=== PATIENT | male | born 1980 ===

== ENCOUNTER 2022-05-04 04:31 | Inpatient (IN) | payer SELFPAY ==
[2022-05-04 07:35] LABS: Basophils # (Auto) 0.1 K/mm3 (0.0-0.1); Basophils % (Auto) 2.2 % (0.0-1.8); Eosinophils # (Auto) 0.2 K/mm3 (0.0-0.4); Eosinophils % (Auto) 3.7 % (0.0-4.3); Hematocrit 34.4 % (35.5-45.6); Hemoglobin 11.1 gm/dl (11.8-15.2); Lymphocytes # (Auto) 1.8 K/mm3 (1.2-5.4); Lymphocytes % (Auto) 28.6 % (13.4-35.0); Mean Corpuscular HGB Conc 32 % (32-34); Mean Corpuscular Volume 90 fl (84-94); Monocytes # (Auto) 0.4 K/mm3 (0.0-0.8); Monocytes % (Auto) 5.6 % (0.0-7.3); Platelet Count 269 K/mm3 (140-440); Red Blood Count 3.82 M/mm3 (3.65-5.03); Red Cell Distribution Width 17.2 % (13.2-15.2)
[2022-05-04 07:52] LABS: Albumin 4.5 g/dL (3.9-5); Calcium 9.3 mg/dL (8.4-10.2)
[2022-05-04] MEDS ORDERED: SODIUM CHLORIDE 0.9% 1000 ML 1,000 ML IV ONE (08:39)
--- NOTE | 2022-05-04 08:54 | Emergency Department Report ---
ED General Adult HPI - General Chief complaint: High BP Stated complaint: HIGH BP/BLOOD SUGAR Source: patient Mode of arrival: Ambulatory Limitations: No Limitations - History of Present Illness Initial comments: 41-year-old male presents with a history of hypertension and diabetes presents to the ED complaining of dizziness. Patient states that he works out in the sun for 12 hours a day. Patient states that he started some new hypertension medication x2 weeks ago unknown name of medication. Patient states since starting the medication he has become dizzy. Patient denies any chest pain or abdominal pain at present time. Patient is alert and oriented x3. No acute distress noted. No ill appearance noted. lang interpreter used via language line Severity scale (0 -10): 8 - Related Data Home Medications Medication Instructions Recorded Confirmed Last Taken Lisinopril [Zestril TAB] 2.5 mg PO DAILY 05/06/22 05/06/22 Unknown Simvastatin 20 mg PO QHS 05/06/22 05/06/22 Unknown Previous Rx's Medication Instructions Recorded Last Taken Type Famotidine [Pepcid] 10 mg PO BID #30 tablet 05/06/22 Unknown Rx ISOSORBIDE MONOnitrate [Imdur ER] 30 mg PO DAILY #30 tab.er.24h 05/06/22 Unknown Rx Vancomycin HCl 125 mg PO QID #40 cap 05/06/22 Unknown Rx hydrALAZINE [Apresoline TAB] 50 mg PO Q8HR #120 tablet 05/06/22 Unknown Rx metroNIDAZOLE [Flagyl TAB] 500 mg PO Q8HR #30 tablet 05/06/22 Unknown Rx oxyCODONE /ACETAMINOPHEN [Percocet 1 tab PO Q6H PRN #10 tablet 05/06/22 Unknown Rx 5/325 mg] Allergies Allergy/AdvReac Type Severity Reaction Status Date / Time No Known Allergies Allergy Unverified 05/04/22 04:56 ED Review of Systems ROS: Stated complaint: HIGH BP/BLOOD SUGAR Other details as noted in HPI Constitutional: denies: chills, fever Eyes: denies: eye pain, eye discharge, vision change ENT: denies: ear pain, throat pain Respiratory: denies: cough, shortness of breath, wheezing Cardiovascular: denies: chest pain, palpitations Endocrine: no symptoms reported Gastrointestinal: denies: abdominal pain, nausea, diarrhea Genitourinary: denies: urgency, dysuria Musculoskeletal: denies: back pain, joint swelling, arthralgia Skin: denies: rash, lesions Neurological: denies: headache, weakness, paresthesias Psychiatric: denies: anxiety, depression Hematological/Lymphatic: denies: easy bleeding, easy bruising ED Past Medical Hx - Medications Home Medications: Home Medications Medication Instructions Recorded Confirmed Last Taken Type Famotidine [Pepcid] 10 mg PO BID #30 tablet 05/06/22 Unknown Rx ISOSORBIDE MONOnitrate [Imdur ER] 30 mg PO DAILY #30 tab.er.24h 05/06/22 Unknown Rx Lisinopril [Zestril TAB] 2.5 mg PO DAILY 05/06/22 05/06/22 Unknown History Simvastatin 20 mg PO QHS 05/06/22 05/06/22 Unknown History Vancomycin HCl 125 mg PO QID #40 cap 05/06/22 Unknown Rx hydrALAZINE [Apresoline TAB] 50 mg PO Q8HR #120 tablet 05/06/22 Unknown Rx metroNIDAZOLE [Flagyl TAB] 500 mg PO Q8HR #30 tablet 05/06/22 Unknown Rx oxyCODONE /ACETAMINOPHEN [Percocet 1 tab PO Q6H PRN #10 tablet 05/06/22 Unknown Rx 5/325 mg] ED Physical Exam - General Limitations: No Limitations General appearance: alert, in no apparent distress - Head Head exam: Present: atraumatic, normocephalic - Eye Eye exam: Present: normal appearance - ENT ENT exam: Present: mucous membranes moist - Neck Neck exam: Present: normal inspection - Respiratory Respiratory exam: Present: normal lung sounds bilaterally. Absent: respiratory distress - Cardiovascular Cardiovascular Exam: Present: regular rate, normal rhythm. Absent: systolic murmur, diastolic murmur, rubs, gallop - GI/Abdominal GI/Abdominal exam: Present: soft, normal bowel sounds - Rectal Rectal exam: Present: deferred - Extremities Exam Extremities exam: Present: normal inspection - Back Exam Back exam: Present: normal inspection - Neurological Exam Neurological exam: Present: alert, oriented X3 - Psychiatric Psychiatric exam: Present: normal affect, normal mood - Skin Skin exam: Present: warm, dry, intact, normal color. Absent: rash ED Course Vital Signs 05/04/22 05/04/22 05/04/22 04:44 07:32 20:21 Temperature 98.8 F Pulse Rate 67 70 67 Respiratory 20 18 14 Rate Blood Pressure 169/114 142/102 171/112 [Right] O2 Sat by Pulse 100 97 97 Oximetry ED Medical Decision Making - Lab Data Result diagrams: 05/07/22 05:12 05/07/22 05:12 - Medical Decision Making 41-year-old male presents with a history of hypertension and diabetes presents to the ED complaining of dizziness. Patient states that he works out in the sun for 12 hours a day. Patient states that he started some new hypertension medication x2 weeks ago unknown name of medication. Patient states since starting the medication he has become dizzy. Patient denies any chest pain or abdominal pain at present time. Patient is alert and oriented x3. No acute distress noted. No ill appearance noted. lang interpreter used via language line. Physical examination is unremarkable. BUN and creatinine elevated. Consulted nephrology and Dr. Lyons for admission. Laboratory Results - last 72 hr 05/04/22 05/04/22 05/04/22 12:23 12:23 12:23 WBC 6.5 RBC 3.99 Hgb 11.6 L Hct 35.7 MCV 89 MCH 29 MCHC 33 RDW 17.2 H Plt Count 269 Phosphorus 3.30 Total Creatine Kinase 2651 H PTH Intact 44.06 Critical care attestation.: If time is entered above; I have spent that time in minutes in the direct care of this critically ill patient, excluding procedure time. ED Disposition Clinical Impression: Acute renal failure Qualifiers: Acute renal failure type: unspecified Qualified Code(s): N17.9 - Acute kidney failure, unspecified Disposition: ADMITTED INPATIENT Is pt being admited?: Yes Does the pt Need Aspirin: No Condition: Stable
[2022-05-04 09:09] LABS: WBC,Urine < 1.0 /HPF (0.0-6.0)
[2022-05-04 09:12] LABS: Color,Urine Straw (Yellow); RBC,Urine < 1.0 /HPF (0.0-6.0)
--- NOTE | 2022-05-04 11:21 | Consultation ---
History of Present Illness - Reason for Consult Consult date: 05/04/22 - History of Present Illness This is a 41 y/o M with PMH of DM2 and HTN who presented to [facility] ED with c/o dizziness. 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 Pt was apparently working outside in the sun for about 12 hrs. Pt reported starting a new BP medication about 2 wks ago, but unsure of name of medication. Pt reported his dizziness started after taking new medication. Pt was found to have abnormal renal function and renal consult was requested. Past History Past Medical History: diabetes, hypertension Medications and Allergies Allergies Allergy/AdvReac Type Severity Reaction Status Date / Time No Known Allergies Allergy Unverified 05/04/22 04:56 Review of Systems Constitutional: fatigue, weakness Ears, nose, mouth and throat: other (dizziness) Cardiovascular: lightheadedness Neurological: other (dizziness) Exam - Vital Signs Vital signs: Vital Signs Temp Pulse Resp BP Pulse Ox 98.8 F 67 20 169/114 100 05/04/22 04:44 05/04/22 04:44 05/04/22 04:44 05/04/22 04:44 05/04/22 04:44 - General Appearance General appearance: other (no acute distress) EENT: ATNC Neck: Present: neck supple Respiratory: Clear to Ascultation Heart: regular, S1S2 Gastrointestinal: Present: normoactive bowel sounds. Absent: tenderness Integumentary: warm and dry Neurologic: other (pt speaks primarily Scottish) Musculoskeletal: Present: other (trace edema to BLE) Results - Lab Results 05/04/22 07:14 05/04/22 07:14 Most recent lab results Calcium 9.3 mg/dL (8.4-10.2) 05/04/22 07:14 Assessment and Plan Dizziness Acute Kidney Injury possibly 2/2 prerenal etiology, ? BP medication, ? hx of CKD, r/o obstruction HTN Plan: - Renal function reviewed, SCr level was 3.2 today - Unknown SCr baseline - Pt with hx of HTN, possible underlying CKD 2/2 HTN - S/p 0.9% NS Bolus in ED - Unsure of name of BP medication(s) pt was recently started on outpatient. It's a possibility BP medication(s) could be a contributing factor toward NANCY (? ACEI, ARBs, or diuretic) - Obtain Renal US - UA showed 3+ protein, obtain urine protein to quantity proteinuria, check urine lytes, eosinophils - Check CK level - Check PTH, phosphorus, and magnesium - Strict intake and output - Vega Catheter: No - Renal plan reviewed by Dr Rodriguez
[2022-05-04 12:53] LABS: Hematocrit 35.7 % (35.5-45.6); Hemoglobin 11.6 gm/dl (11.8-15.2); Mean Corpuscular HGB Conc 33 % (32-34); Mean Corpuscular Volume 89 fl (84-94); Platelet Count 269 K/mm3 (140-440); Red Blood Count 3.99 M/mm3 (3.65-5.03); Red Cell Distribution Width 17.2 % (13.2-15.2)
--- NOTE | 2022-05-04 14:15 | Ultrasound Report ---
ULTRASOUND RENAL INDICATION / CLINICAL INFORMATION: NANCY. COMPARISON: None available. FINDINGS: RIGHT KIDNEY: Length = 10.7 cm. - Echogenicity: Moderately echogenic. - Parenchymal Thickness: Mild thinning. - Hydronephrosis: None. - Cyst / Mass: None. - Stones: None seen. LEFT KIDNEY: Length = 10.9 cm. - Echogenicity: Moderately echogenic. - Parenchymal Thickness: Mild thinning. - Hydronephrosis: None. - Cyst / Mass: None. - Stones: None seen. URINARY BLADDER: The urinary bladder is partially collapsed. The wall appears mildly thickened. This is nonspecific. FREE FLUID: None. ADDITIONAL FINDINGS: There is a 1.7 cm hyperechoic lesion in the right lobe of the liver. IMPRESSION: 1. There is mild parenchymal thinning. The kidneys are echogenic suggesting medical renal disease. Th ere is no hydronephrosis. 2. There is a 1.7 cm hyperechoic lesion in the liver. This is indeterminate. This may represent a hem angioma. Further evaluation with CT imaging is recommended. Signer Name: Juan Silva MD Signed: 05/04/2022 2:10 PM Workstation Name: [id number]
[2022-05-04] MEDS ORDERED: ONDANSETRON 4 MG/2 ML INJ IV PRN (17:20)
[2022-05-04] MEDS ORDERED: MORPHINE 2 MG/1 ML INJ IV PRN (17:25)
[2022-05-04] MEDS ORDERED: D5W/0.9% NACL 1,000 ML IV SCH (18:00)
[2022-05-04] MEDS ORDERED: FAMOTIDINE 20 MG TAB PO SCH (22:00)
[2022-05-04] MEDS: HEPARIN 5,000 UNIT/1 ML VIAL SUB-Q SCH (23:09)
[2022-05-04] MEDS: ACETAMINOPHEN 325 MG TAB PO PRN (23:27)
[2022-05-04] MEDS ORDERED: hydrALAZINE 20 MG/1 ML INJ IV PRN (23:37)
--- NOTE | 2022-05-05 07:04 | History and Physical Report ---
History of Present Illness Date of examination: 05/04/22 Date of admission: 05/04/22 17:20 Chief complaint: Generalized weakness and dizziness for 1 week History of present illness: 41-year-old Faroese-speaking male with history of hypertension and diabetes comes to the emergency room for dizziness. Patient was out in the sun for 12 hours a day. Patient was started on antihypertensive medication 2 weeks ago. Patient does not remember the name. Patient feels lightheaded and weak. In the emergency room evaluation revealed a high creatinine of 28/3.2. No known history of any kidney disease. No nausea or vomiting. No fever or chills. Patient wants an work excuse to avoid sun. Patient feels that all his problems are because of exposure to sun. Past History Past Medical History: diabetes, hypertension Past Surgical History: No surgical history Social history: lives with family, full code, other (Alcohol use socially). denies: smoking Family history: no significant family history Medications and Allergies Allergies Allergy/AdvReac Type Severity Reaction Status Date / Time No Known Allergies Allergy Unverified 05/04/22 04:56 Active Meds: Active Medications Acetaminophen (Acetaminophen 325 Mg Tab) 650 mg PO Q4H PRN PRN Reason: Pain MILD(1-3)/Fever >100.5/FRANK Last Admin: 05/04/22 23:27 Dose: 650 mg Famotidine (Famotidine 20 Mg Tab) 20 mg PO BID HANNY Last Admin: 05/04/22 23:10 Dose: 20 mg Heparin Sodium (Porcine) (Heparin 5,000 Unit/1 Ml Vial) 5,000 unit SUB-Q Q12HR HANNY Last Admin: 05/04/22 23:09 Dose: 5,000 unit Hydralazine HCl (Hydralazine 20 Mg/1 Ml Inj) 10 mg IV Q6H PRN PRN Reason: Hypertension Last Admin: 05/05/22 00:13 Dose: 10 mg Dextrose/Sodium Chloride (D5ns) 1,000 mls @ 125 mls/hr IV DIRECT HANNY Last Admin: 05/05/22 06:05 Dose: 125 mls/hr Morphine Sulfate (Morphine 2 Mg/1 Ml Inj) 2 mg IV Q4H PRN PRN Reason: Pain, Moderate (4-6) Ondansetron HCl (Ondansetron 4 Mg/2 Ml Inj) 4 mg IV Q8H PRN PRN Reason: Nausea And Vomiting Oxycodone/Acetaminophen (Oxycodone /Acetaminophen 5-325mg Tab) 1 tab PO Q6H PRN PRN Reason: Pain, Moderate (4-6) Sodium Chloride (Sodium Chloride 0.9% 10 Ml Flush Syringe) 10 ml IV BID HANNY Last Admin: 05/04/22 22:00 Dose: 10 ml Sodium Chloride (Sodium Chloride 0.9% 10 Ml Flush Syringe) 10 ml IV PRN PRN PRN Reason: LINE FLUSH Review of Systems All systems: negative Neurological: other (Dizziness and generalized weakness) Exam - Constitutional Vitals: Temp Pulse Resp BP Pulse Ox 98.0 F 66 14 140/109 93 05/05/22 05:10 05/05/22 05:10 05/04/22 20:21 05/05/22 05:10 05/05/22 05:10 General appearance: Present: no acute distress, well-nourished - EENT Eyes: Present: PERRL ENT: hearing intact, clear oral mucosa, other (Mucous membranes are dry) - Neck Neck: Present: supple, normal ROM - Respiratory Respiratory effort: normal Respiratory: bilateral: CTA - Cardiovascular Heart rate: 98 Rhythm: regular Heart Sounds: Present: S1 & S2. Absent: rub, click - Extremities Extremities: pulses symmetrical, No edema Peripheral Pulses: within normal limits - Abdominal General gastrointestinal: Present: soft, non-tender, non-distended, normal bowel sounds Male genitourinary: Present: normal - Integumentary Integumentary: Present: clear, warm, dry - Musculoskeletal Musculoskeletal: gait normal, strength equal bilaterally - Psychiatric Psychiatric: appropriate mood/affect, intact judgment & insight - Neurologic Neurologic: CNII-XII intact, moves all extremities Results - Labs CBC & Chem 7: 05/04/22 12:23 05/04/22 07:14 Labs: Laboratory Last Values WBC 6.5 K/mm3 (4.5-11.0) 05/04/22 12:23 RBC 3.99 M/mm3 (3.65-5.03) 05/04/22 12:23 Hgb 11.6 gm/dl (11.8-15.2) L 05/04/22 12:23 Hct 35.7 % (35.5-45.6) 05/04/22 12:23 MCV 89 fl (84-94) 05/04/22 12:23 MCH 29 pg (28-32) 05/04/22 12:23 MCHC 33 % (32-34) 05/04/22 12:23 RDW 17.2 % (13.2-15.2) H 05/04/22 12:23 Plt Count 269 K/mm3 (140-440) 05/04/22 12:23 Lymph % (Auto) 28.6 % (13.4-35.0) 05/04/22 07:14 Dickenson % (Auto) 5.6 % (0.0-7.3) 05/04/22 07:14 Eos % (Auto) 3.7 % (0.0-4.3) 05/04/22 07:14 Baso % (Auto) 2.2 % (0.0-1.8) H 05/04/22 07:14 Lymph # (Auto) 1.8 K/mm3 (1.2-5.4) 05/04/22 07:14 Dickenson # (Auto) 0.4 K/mm3 (0.0-0.8) 05/04/22 07:14 Eos # (Auto) 0.2 K/mm3 (0.0-0.4) 05/04/22 07:14 Baso # (Auto) 0.1 K/mm3 (0.0-0.1) 05/04/22 07:14 Seg Neutrophils % 59.9 % (40.0-70.0) 05/04/22 07:14 Seg Neutrophils # 3.9 K/mm3 (1.8-7.7) 05/04/22 07:14 Sodium 141 mmol/L (137-145) 05/04/22 07:14 Potassium 4.6 mmol/L (3.6-5.0) 05/04/22 07:14 Chloride 104.2 mmol/L (98-107) 05/04/22 07:14 Carbon Dioxide 22 mmol/L (22-30) 05/04/22 07:14 Anion Gap 19 mmol/L 05/04/22 07:14 BUN 28 mg/dL (9-20) H 05/04/22 07:14 Creatinine 3.2 mg/dL (0.8-1.3) H 05/04/22 07:14 Estimated GFR 21 ml/min 05/04/22 07:14 BUN/Creatinine Ratio 9 % 05/04/22 07:14 Glucose 128 mg/dL (75-100) H 05/04/22 07:14 POC Glucose 94 mg/dL (70-105) 05/04/22 22:44 Calcium 9.3 mg/dL (8.4-10.2) 05/04/22 07:14 Phosphorus 3.30 mg/dL (2.5-4.5) 05/04/22 12:23 Total Bilirubin 0.40 mg/dL (0.1-1.2) 05/04/22 07:14 AST 55 units/L (5-40) H 05/04/22 07:14 ALT 25 units/L (7-56) 05/04/22 07:14 Alkaline Phosphatase 55 units/L (35-129) 05/04/22 07:14 Total Creatine Kinase 2651 units/L (55-170) H 05/04/22 12:23 Total Protein 7.3 g/dL (6.3-8.2) 05/04/22 07:14 Albumin 4.5 g/dL (3.9-5) 05/04/22 07:14 Albumin/Globulin Ratio 1.6 % 05/04/22 07:14 PTH Intact 44.06 pg/mL (15-65) 05/04/22 12:23 Urine Color Straw (Yellow) 05/04/22 08:18 Urine Turbidity Clear (Clear) 05/04/22 08:18 Specific Hensley (Man) 1.015 (1.003-1.030) 05/04/22 08:18 Ur Protein (Man) 3+ mg/dL (Negative) 05/04/22 08:18 Ur Ketones (Man) Negative (Negative) 05/04/22 08:18 Ur Nitrite (Man) Negative (Negative) 05/04/22 08:18 Ur Reducing Substances Not Reportable 05/04/22 08:18 Urine Bilirubin (Man) Negative (Negative) 05/04/22 08:18 Urine Ictotest Not Reportable 05/04/22 08:18 Leukocyte Esterase (Man) Negative (Negative) 05/04/22 08:18 Urine WBC (Auto) < 1.0 /HPF (0.0-6.0) 05/04/22 08:18 Urine RBC (Auto) < 1.0 /HPF (0.0-6.0) 05/04/22 08:18 U Epithel Cells (Auto) < 1.0 /HPF (0-13.0) 05/04/22 08:18 Urine RBC (Manual) Negative (Negative) 05/04/22 08:18 Short CBC 05/04/22 05/04/22 Range/Units 07:14 12:23 WBC 6.5 6.5 (4.5-11.0) K/mm3 Hgb 11.1 L 11.6 L (11.8-15.2) gm/dl Hct 34.4 L 35.7 (35.5-45.6) % Plt Count 269 269 (140-440) K/mm3 BMP 05/04/22 07:14 Sodium 141 Potassium 4.6 Chloride 104.2 Carbon Dioxide 22 BUN 28 H Creatinine 3.2 H Glucose 128 H Calcium 9.3 Cardiac Enzymes 05/04/22 Range/Units 12:23 Total Creatine Kinase 2651 H (55-170) units/L Liver Function 05/04/22 Range/Units 07:14 Total Bilirubin 0.40 (0.1-1.2) mg/dL AST 55 H (5-40) units/L ALT 25 (7-56) units/L Alkaline Phosphatase 55 (35-129) units/L Albumin 4.5 (3.9-5) g/dL Urine 05/04/22 Range/Units 08:18 Urine Color Straw (Yellow) Vega/IV: Voiding Method Urinal Assessment and Plan Advance Directives: Yes (Full code) VTE prophylaxis?: Chemical Plan of care discussed with patient/family: Yes - Patient Problems (1) NANCY (acute kidney injury) Current Visit: Yes Status: Acute Plan to address problem: NANCY secondary to volume depletion Nephrology consult requested Heat exposure IV fluids for now Possible ATN/vasomotor nephropathy (2) Rhabdomyolysis Current Visit: Yes Status: Acute Qualifiers: Rhabdomyolysis type: non-traumatic Qualified Code(s): M62.82 - Rhabdomyolysis Plan to address problem: IV fluids for now CKs 2651. Repeat CKs. (3) Hypertension Current Visit: Yes Status: Chronic Qualifiers: Hypertension type: primary hypertension Qualified Code(s): I10 - Essential (primary) hypertension Plan to address problem: Continue antihypertensives and adjust medications (4) T2DM (type 2 diabetes mellitus) Current Visit: Yes Status: Chronic Qualifiers: Diabetes mellitus long-term insulin use: unspecified adjunct faculty for medical terminology insulin use status Plan to address problem: Patient is not clear about his diabetes history Patient not on any medications Check hemoglobin A1c Accu-Cheks and coverage for now Prescribed metformin and SGLT2 inhibitors if necessary (5) DVT prophylaxis Current Visit: Yes Status: Acute Plan to address problem: On heparin and GI prophylaxis (6) Advance care planning Current Visit: Yes Status: Acute Plan to address problem: Disease education conducted, care plan discussed, diagnosis and prognosis discussed. Patient is full code. Patient acknowledges understanding with care plan. +30 minutes.
[2022-05-05] MEDS ORDERED: VALSARTAN 160MG TAB PO SCH (07:30)
--- NOTE | 2022-05-05 08:47 | Progress Note ---
Assessment and Plan Assessment and plan: 41-year-old Faroese-speaking male with history of hypertension and diabetes comes to the emergency room for dizziness. Patient was out in the sun for 12 hours a day. Patient was started on antihypertensive medication 2 weeks ago. Patient does not remember the name. Patient feels lightheaded and weak. In the emergency room evaluation revealed a high creatinine of 28/3.2. No known history of any kidney disease. No nausea or vomiting. No fever or chills. Patient wants an work excuse to avoid sun. Patient feels that all his problems are because of exposure to sun. Past History Past Medical History: diabetes, hypertension Past Surgical History: No surgical history Social history: lives with family, full code, other (Alcohol use socially). denies: smoking Family history: no significant family history 05/05: Patient still with abdominal discomfort we will obtain a CT abdomen pelvis noncontrast. Renal function reviewed this morning creatinine is down to 3.0 we will change fluids to normal saline at 125 cc an hour. We will hold valsartan at this time. Start patient on hydralazine as patient still has hypertensive urgency. May need to add Norvasc or isosorbide for better control of blood pressure if no improvement will hydralazine. Awaiting powertrain design engineer evaluation. We will also obtain orthostatic pressures considering dizziness reported earlier. (1) NANCY (acute kidney injury) Current Visit: Yes Status: Acute Plan to address problem: NANCY secondary to volume depletion Nephrology consult requested Heat exposure IV fluids for now Possible ATN/vasomotor nephropathy (2) Rhabdomyolysis Current Visit: Yes Status: Acute Qualifiers: Rhabdomyolysis type: non-traumatic Qualified Code(s): M62.82 - Rhabdomyolysis Plan to address problem: IV fluids for now CKs 2651. Repeat CKs. (3) Hypertension Current Visit: Yes Status: Chronic Qualifiers: Hypertension type: primary hypertension Qualified Code(s): I10 - Essential (primary) hypertension Plan to address problem: Continue antihypertensives and adjust medications (4) T2DM (type 2 diabetes mellitus) Current Visit: Yes Status: Chronic Qualifiers: Diabetes mellitus detention insulin use: unspecified detention insulin use status Plan to address problem: Patient is not clear about his diabetes history Patient not on any medications Check hemoglobin A1c Accu-Cheks and coverage for now Prescribed metformin and SGLT2 inhibitors if necessary (5) DVT prophylaxis Current Visit: Yes Status: Acute Plan to address problem: On heparin and GI prophylaxis (6) Advance care planning Current Visit: Yes Status: Acute Plan to address problem: Disease education conducted, care plan discussed, diagnosis and prognosis discussed. Patient is full code. Patient acknowledges understanding with care plan. +30 minutes. Inpatient Justification * Risk of adverse events associated with worsening signs & symptoms of principle problem and up to . * Risk of adverse events related to severe illness up to and including * Treatment requiring a hospital setting: Acute kidney injury, hypertensive urgency * Current post hospital plan of care: Discharge home History Interval history: Patient seen and examined still complains of left lower quadrant abdominal discomfort 4/10 in intensity no associated nausea vomiting tolerating diet Hospitalist Physical - Physical exam Narrative exam: VITAL SIGNS: Reviewed. GENERAL: The patient appears normally developed, Vital signs as documented. HEAD: No signs of head trauma. EYES: Pupils are equal. Extraocular motions intact. EARS: Hearing grossly intact. MOUTH: Oropharynx is normal. NECK: No adenopathy, no JVD. CHEST: Chest with clear breath sounds bilaterally. No wheezes, rales, or rhonchi. CARDIAC: Regular rate and rhythm. S1 and S2, without murmurs, gallops, or rubs. VASCULAR: No Edema. Peripheral pulses normal and equal in all extremities. ABDOMEN: Soft, enlarged abdominal girth, tender left lower quadrant with no rebound and non distended. No guarding, and no masses palpated. Bowel Sounds normal. MUSCULOSKELETAL: Good range of motion of all major joints. Extremities without clubbing, cyanosis or edema. NEUROLOGIC EXAM: Alert and oriented x 3 No focal sensory or strength deficits. Speech normal. Follows commands. PSYCHIATRIC: Mood normal. SKIN: detail exam as documented in skin assessment - Constitutional Vitals: Temp Pulse Resp BP Pulse Ox 98.0 F 66 14 140/109 93 05/05/22 05:10 05/05/22 05:10 05/04/22 20:21 05/05/22 05:10 05/05/22 05:10 General appearance: Present: no acute distress, well-nourished Results - Labs CBC & Chem 7: 05/05/22 09:50 05/05/22 09:50 Labs: Laboratory Last Values WBC 6.5 K/mm3 (4.5-11.0) 05/04/22 12:23 RBC 3.99 M/mm3 (3.65-5.03) 05/04/22 12:23 Hgb 11.6 gm/dl (11.8-15.2) L 05/04/22 12:23 Hct 35.7 % (35.5-45.6) 05/04/22 12:23 MCV 89 fl (84-94) 05/04/22 12:23 MCH 29 pg (28-32) 05/04/22 12:23 MCHC 33 % (32-34) 05/04/22 12:23 RDW 17.2 % (13.2-15.2) H 05/04/22 12:23 Plt Count 269 K/mm3 (140-440) 05/04/22 12:23 Lymph % (Auto) 28.6 % (13.4-35.0) 05/04/22 07:14 [place] % (Auto) 5.6 % (0.0-7.3) 05/04/22 07:14 Eos % (Auto) 3.7 % (0.0-4.3) 05/04/22 07:14 Baso % (Auto) 2.2 % (0.0-1.8) H 05/04/22 07:14 Lymph # (Auto) 1.8 K/mm3 (1.2-5.4) 05/04/22 07:14 [place] # (Auto) 0.4 K/mm3 (0.0-0.8) 05/04/22 07:14 Eos # (Auto) 0.2 K/mm3 (0.0-0.4) 05/04/22 07:14 Baso # (Auto) 0.1 K/mm3 (0.0-0.1) 05/04/22 07:14 Seg Neutrophils % 59.9 % (40.0-70.0) 05/04/22 07:14 Seg Neutrophils # 3.9 K/mm3 (1.8-7.7) 05/04/22 07:14 Sodium 141 mmol/L (137-145) 05/04/22 07:14 Potassium 4.6 mmol/L (3.6-5.0) 05/04/22 07:14 Chloride 104.2 mmol/L (98-107) 05/04/22 07:14 Carbon Dioxide 22 mmol/L (22-30) 05/04/22 07:14 Anion Gap 19 mmol/L 05/04/22 07:14 BUN 28 mg/dL (9-20) H 05/04/22 07:14 Creatinine 3.2 mg/dL (0.8-1.3) H 05/04/22 07:14 Estimated GFR 21 ml/min 05/04/22 07:14 BUN/Creatinine Ratio 9 % 05/04/22 07:14 Glucose 128 mg/dL (75-100) H 05/04/22 07:14 POC Glucose 94 mg/dL (70-105) 05/04/22 22:44 Calcium 9.3 mg/dL (8.4-10.2) 05/04/22 07:14 Phosphorus 3.30 mg/dL (2.5-4.5) 05/04/22 12:23 Total Bilirubin 0.40 mg/dL (0.1-1.2) 05/04/22 07:14 AST 55 units/L (5-40) H 05/04/22 07:14 ALT 25 units/L (7-56) 05/04/22 07:14 Alkaline Phosphatase 55 units/L (35-129) 05/04/22 07:14 Total Creatine Kinase 2651 units/L (55-170) H 05/04/22 12:23 Total Protein 7.3 g/dL (6.3-8.2) 05/04/22 07:14 Albumin 4.5 g/dL (3.9-5) 05/04/22 07:14 Albumin/Globulin Ratio 1.6 % 05/04/22 07:14 PTH Intact 44.06 pg/mL (15-65) 05/04/22 12:23 Urine Color Straw (Yellow) 05/04/22 08:18 Urine Turbidity Clear (Clear) 05/04/22 08:18 Specific [place] (Man) 1.015 (1.003-1.030) 05/04/22 08:18 Ur Protein (Man) 3+ mg/dL (Negative) 05/04/22 08:18 Ur Ketones (Man) Negative (Negative) 05/04/22 08:18 Ur Nitrite (Man) Negative (Negative) 05/04/22 08:18 Ur Reducing Substances Not Reportable 05/04/22 08:18 Urine Bilirubin (Man) Negative (Negative) 05/04/22 08:18 Urine Ictotest Not Reportable 05/04/22 08:18 Leukocyte Esterase (Man) Negative (Negative) 05/04/22 08:18 Urine WBC (Auto) < 1.0 /HPF (0.0-6.0) 05/04/22 08:18 Urine RBC (Auto) < 1.0 /HPF (0.0-6.0) 05/04/22 08:18 U Epithel Cells (Auto) < 1.0 /HPF (0-13.0) 05/04/22 08:18 Urine RBC (Manual) Negative (Negative) 05/04/22 08:18 Vega/IV: Voiding Method Urinal Active Medications - Current Medications Current Medications: Generic Name Dose Route Start Last Admin Trade Name Freq PRN Reason Stop Dose Admin Acetaminophen 650 mg 05/04/22 17:20 05/04/22 23:27 Acetaminophen 325 Mg Tab PO 650 mg Q4H PRN Administration Pain MILD(1-3)/Fever >100.5/FRANK Famotidine 20 mg 05/04/22 22:00 05/04/22 23:10 Famotidine 20 Mg Tab PO 20 mg BID HANNY Administration Heparin Sodium (Porcine) 5,000 unit 05/04/22 22:00 05/04/22 23:09 Heparin 5,000 Unit/1 Ml Vial SUB-Q 5,000 unit Q12HR HANNY Administration Hydralazine HCl 10 mg 05/04/22 23:37 05/05/22 00:13 Hydralazine 20 Mg/1 Ml Inj IV 10 mg Q6H PRN Administration Hypertension Dextrose/Sodium Chloride 1,000 mls @ 125 mls/hr 05/04/22 18:00 05/05/22 06:05 D5ns IV 125 mls/hr DIRECT HANNY Administration Insulin Human Lispro 0 unit 05/05/22 07:30 Insulin Lispro 100 Unit/Ml SUB-Q ACHS HANNY Protocol Morphine Sulfate 2 mg 05/04/22 17:25 Morphine 2 Mg/1 Ml Inj IV Q4H PRN Pain, Moderate (4-6) Ondansetron HCl 4 mg 05/04/22 17:20 Ondansetron 4 Mg/2 Ml Inj IV Q8H PRN Nausea And Vomiting Oxycodone/Acetaminophen 1 tab 05/04/22 17:25 Oxycodone /Acetaminophen 5-325mg Tab PO Q6H PRN Pain, Moderate (4-6) Sodium Chloride 10 ml 05/04/22 22:00 05/04/22 22:00 Sodium Chloride 0.9% 10 Ml Flush Syringe IV 10 ml BID HANNY Administration Sodium Chloride 10 ml 05/04/22 17:20 Sodium Chloride 0.9% 10 Ml Flush Syringe IV PRN PRN LINE FLUSH Valsartan 160 mg 05/05/22 07:30 Valsartan 160mg Tab PO BID HANNY
[2022-05-05] MEDS: INSULIN LISPRO 100 UNIT/ML SUB-Q SCH ×4 (09:39→23:06)
[2022-05-05] MEDS: FAMOTIDINE 10 MG TAB PO SCH ×2 (09:59→23:20)
[2022-05-05] MEDS: HEPARIN 5,000 UNIT/1 ML VIAL SUB-Q SCH ×2 (09:59→21:47)
[2022-05-05] MEDS: oxyCODONE /ACETAMINOPHEN 5-325MG TAB PO PRN ×2 (10:00→21:45)
[2022-05-05 10:09] LABS: Basophils # (Auto) 0.1 K/mm3 (0.0-0.1); Eosinophils # (Auto) 0.2 K/mm3 (0.0-0.4); Eosinophils % (Auto) 2.6 % (0.0-4.3); Hematocrit 32.9 % (35.5-45.6); Hemoglobin 10.9 gm/dl (11.8-15.2); Lymphocytes # (Auto) 1.9 K/mm3 (1.2-5.4); Lymphocytes % (Auto) 30.4 % (13.4-35.0); Mean Corpuscular HGB Conc 33 % (32-34); Mean Corpuscular Volume 89 fl (84-94); Monocytes # (Auto) 0.4 K/mm3 (0.0-0.8); Monocytes % (Auto) 6.2 % (0.0-7.3); Platelet Count 243 K/mm3 (140-440); Red Cell Distribution Width 17.3 % (13.2-15.2)
[2022-05-05 10:32] LABS: Albumin 4.4 g/dL (3.9-5)
--- NOTE | 2022-05-05 12:54 | Cat Scan Report ---
CT ABDOMEN AND PELVIS WITHOUT CONTRAST HISTORY: llq pain. COMPARISON: None. TECHNIQUE: CT images of the abdomen and pelvis were obtained without administration of intravenous co ntrast. All CT scans at this location are performed using CT dose reduction for ALARA by means of au tomated exposure control. FINDINGS: Lungs/bones: Tiny 1 to 2 mm nodule in the right lower lung. Mild atelectasis in the lower lungs. Sma ll pericardial effusion Abdomen/pelvis: Within limits of a noncontrast exam the liver, spleen, adrenal glands, pancreas, gal lbladder appear normal. No hydronephrosis is seen. There is diffuse thickening of the ascending colon wall with surrounding inflammatory change. There is some questionable mild thickening of the splenic flexure. Urinary bladder is distended. Degenerative changes seen throughout spine IMPRESSION: 1. There is diffuse thickening of the ascending colon wall. Questionable mild thickening in the splen ic flexure of the colon as well.. Findings could represent a colitis with surrounding inflammatory ch lucita or bowel wall thickening. A follow-up is recommended with colonoscopy follow-up to exclude under lying mass or other abnormality. 2. Bladder is distended. 3. Tiny 1 to 2 mm pulmonary nodule in the right lower lung. Signer Name: Dank Mcgee MD Signed: 05/05/2022 12:50 PM Workstation Name: [email or web address]
--- NOTE | 2022-05-05 15:07 | Progress Note ---
Assessment and Plan Assessment: Dizziness Acute Kidney Injury possibly 2/2 prerenal etiology, ? BP medication, ? hx of CKD, r/o obstruction Hypertension Plan: - Renal function reviewed, SCr level was 3.0 today, yesterdays was 3.2 - Unknown baseline serum creatinine - Pt with hx of HTN, possible underlying CKD 2/2 Hypertension - S/P 0.9% NS Bolus in ED - Renal US- No hydronephrosis. Medical renal disease. - UA showed 3+ protein - Urine protein, urine lytes, eosinophils-pending - CK level-pending - PTH and phosphorus is normal - Strict intake and output - Vega Catheter: No - Continue to monitor renal function - Renal plan reviewed by Dr Rodriguez Subjective Date of service: 05/05/22 Principal diagnosis: ARF on CKD Interval history: Patient seen lying in bed Objective - Vital Signs Vital signs: Vital Signs - 12hr 05/05/22 05/05/22 05:10 11:08 Temperature 98.0 F 98.5 F Pulse Rate 66 65 Respiratory 18 Rate Blood Pressure 140/109 143/95 O2 Sat by Pulse 93 97 Oximetry - General Appearance General appearance: well-developed, appears stated age EENT: ATNC, PERRL Neck: no JVD, supple Respiratory: Present: Decreased Breath Sounds Cardiology: S1S2 Gastrointestinal: normoactive bowel sounds Integumentary: warm and dry Neurologic: alert and oriented x3 Musculoskeletal: joint swelling - Lab 05/05/22 09:50 05/05/22 09:50 Most recent lab results Calcium 9.0 mg/dL (8.4-10.2) 05/05/22 09:50 Phosphorus 3.30 mg/dL (2.5-4.5) 05/04/22 12:23 Medications & Allergies - Medications Allergies/Adverse Reactions: Allergies No Known Allergies Allergy (Unverified 05/04/22 04:56) Active Medications: Generic Name Dose Route Start Last Admin Trade Name Freq PRN Reason Stop Dose Admin Acetaminophen 650 mg 05/04/22 17:20 05/04/22 23:27 Acetaminophen 325 Mg Tab PO 650 mg Q4H PRN Administration Pain MILD(1-3)/Fever >100.5/FRANK Famotidine 10 mg 05/05/22 10:00 05/05/22 09:59 Famotidine 10 Mg Tab PO 10 mg BID HANNY Administration Heparin Sodium (Porcine) 5,000 unit 05/04/22 22:00 05/05/22 09:59 Heparin 5,000 Unit/1 Ml Vial SUB-Q 5,000 unit Q12HR [facility] Administration Hydralazine HCl 10 mg 05/04/22 23:37 05/05/22 00:13 Hydralazine 20 Mg/1 Ml Inj IV 10 mg Q6H PRN Administration Hypertension Hydralazine HCl 50 mg 05/05/22 14:00 Hydralazine 25 Mg Tab PO Q8HR [facility] Sodium Chloride 1,000 mls @ 125 mls/hr 05/05/22 10:00 Nacl 0.9% 1000 Ml IV DIRECT [facility] Insulin Human Lispro 0 unit 05/05/22 07:30 05/05/22 11:30 Insulin Lispro 100 Unit/Ml SUB-Q Not Given ACHS [facility] Protocol Morphine Sulfate 2 mg 05/04/22 17:25 Morphine 2 Mg/1 Ml Inj IV Q4H PRN Pain, Moderate (4-6) Ondansetron HCl 4 mg 05/04/22 17:20 Ondansetron 4 Mg/2 Ml Inj IV Q8H PRN Nausea And Vomiting Oxycodone/Acetaminophen 1 tab 05/04/22 17:25 05/05/22 10:00 Oxycodone /Acetaminophen 5-325mg Tab PO 1 tab Q6H PRN Administration Pain, Moderate (4-6) Sodium Chloride 10 ml 05/04/22 22:00 05/05/22 10:01 Sodium Chloride 0.9% 10 Ml Flush Syringe IV 10 ml BID HANNY Administration Sodium Chloride 10 ml 05/04/22 17:20 Sodium Chloride 0.9% 10 Ml Flush Syringe IV PRN PRN LINE FLUSH Valsartan 160 mg 05/06/22 07:30 Valsartan 160mg Tab PO BID [facility]
[2022-05-05] MEDS: hydrALAZINE 25 MG TAB PO SCH ×2 (17:09→21:46)
[2022-05-05] MEDS: SODIUM CHLORIDE 0.9% 1000 ML 1,000 ML IV SCH (23:35)
[2022-05-06] MEDS: hydrALAZINE 25 MG TAB PO SCH ×3 (06:05→22:07)
[2022-05-06 06:45] LABS: Calcium 8.5 mg/dL (8.4-10.2)
[2022-05-06] MEDS: INSULIN LISPRO 100 UNIT/ML SUB-Q SCH ×4 (08:51→22:28)
[2022-05-06] MEDS: FAMOTIDINE 10 MG TAB PO SCH ×2 (09:02→22:09)
[2022-05-06] MEDS: HEPARIN 5,000 UNIT/1 ML VIAL SUB-Q SCH ×2 (09:03→22:09)
[2022-05-06] MEDS: VALSARTAN 160MG TAB PO SCH ×3 (09:06→22:08)
[2022-05-06] MEDS: SODIUM CHLORIDE 0.9% 1000 ML 1,000 ML IV SCH (09:07)
--- NOTE | 2022-05-06 10:57 | Progress Note ---
Assessment and Plan Assessment and plan: 41-year-old Greek-speaking male with history of hypertension and diabetes comes to the emergency room for dizziness. Patient was out in the sun for 12 hours a day. Patient was started on antihypertensive medication 2 weeks ago. Patient does not remember the name. Patient feels lightheaded and weak. In the emergency room evaluation revealed a high creatinine of 28/3.2. No known history of any kidney disease. No nausea or vomiting. No fever or chills. Patient wants an work excuse to avoid sun. Patient feels that all his problems are because of exposure to sun. Past History Past Medical History: diabetes, hypertension Past Surgical History: No surgical history Social history: lives with family, full code, other (Alcohol use socially). denies: smoking Family history: no significant family history 05/05: Patient still with abdominal discomfort we will obtain a CT abdomen pelvis noncontrast. Renal function reviewed this morning creatinine is down to 3.0 we will change fluids to normal saline at 125 cc an hour. We will hold valsartan at this time. Start patient on hydralazine as patient still has hypertensive urgency. May need to add Norvasc or isosorbide for better control of blood pressure if no improvement will hydralazine. Awaiting count room clerk evaluation. We will also obtain orthostatic pressures considering dizziness reported earlier. 05/06: Patient continues to have mild discomfort in the abdomen imaging study CT abdomen and pelvis indicates possible mild colitis. Colonoscopy recommended to rule out a mass. Have consulted GI. Patient is tolerating diet although still reports pain which is amendable to [place]y. Will await GI evaluation. Renal function slowly improving down to 2.9 there may be an underlying CKD to this patient which I also advised the patient about. I have also discussed the importance of weight loss considering a BMI of 36.5 which appears to mildly be understated in this patient. He does have a large neck for which have also recommended an outpatient sleep study evaluation. (1) NANCY (acute kidney injury) Current Visit: Yes Status: Acute Plan to address problem: NANCY secondary to volume depletion Nephrology consult requested Heat exposure IV fluids for now Possible ATN/vasomotor nephropathy (2) Rhabdomyolysis Current Visit: Yes Status: Acute Qualifiers: Rhabdomyolysis type: non-traumatic Qualified Code(s): M62.82 - Rhabdomyolysis Plan to address problem: IV fluids for now CKs 2651. Repeat CKs. (3) Hypertension Current Visit: Yes Status: Chronic Qualifiers: Hypertension type: primary hypertension Qualified Code(s): I10 - Essential (primary) hypertension Plan to address problem: Continue antihypertensives and adjust medications (4) T2DM (type 2 diabetes mellitus) Current Visit: Yes Status: Chronic Qualifiers: Diabetes mellitus terminal superintendent insulin use: unspecified terminal superintendent insulin use status Plan to address problem: Patient is not clear about his diabetes history Patient not on any medications Check hemoglobin A1c Accu-Cheks and coverage for now Prescribed metformin and SGLT2 inhibitors if necessary (5) morbid obesity (6) Left lower quadrant abdominal pain secondary to presumed infectious colitis (7) anemia possible of chronic disease (8) DVT prophylaxis Current Visit: Yes Status: Acute Plan to address problem: On heparin and GI prophylaxis (9) Advance care planning Current Visit: Yes Status: Acute Plan to address problem: Disease education conducted, care plan discussed, diagnosis and prognosis discussed. Patient is full code. Patient acknowledges understanding with care plan. +30 minutes. Inpatient Justification * Risk of adverse events associated with worsening signs & symptoms of principle problem and up to . * Risk of adverse events related to severe illness up to and including * Treatment requiring a hospital setting: Acute kidney injury, hypertensive urgency * Current post hospital plan of care: Discharge home History Interval history: Patient seen and examined still complains of left lower quadrant abdominal discomfort 3/10 in intensity no associated nausea vomiting tolerating diet Hospitalist Physical - Physical exam Narrative exam: VITAL SIGNS: Reviewed. GENERAL: The patient appears normally developed, morbidly obese vital signs as documented. HEAD: No signs of head trauma. EYES: Pupils are equal. Extraocular motions intact. EARS: Hearing grossly intact. MOUTH: Oropharynx is normal. NECK: No adenopathy, no JVD. CHEST: Chest with clear breath sounds bilaterally. No wheezes, rales, or rhonchi. CARDIAC: Regular rate and rhythm. S1 and S2, without murmurs, gallops, or rubs. VASCULAR: No Edema. Peripheral pulses normal and equal in all extremities. ABDOMEN: Soft, enlarged abdominal girth, tender left lower quadrant with no rebound and non distended. No guarding, and no masses palpated. Bowel Sounds normal. MUSCULOSKELETAL: Good range of motion of all major joints. Extremities without clubbing, cyanosis or edema. NEUROLOGIC EXAM: Alert and oriented x 3 No focal sensory or strength deficits. Speech normal. Follows commands. PSYCHIATRIC: Mood normal. SKIN: detail exam as documented in skin assessment - Constitutional Vitals: Temp Pulse Resp BP Pulse Ox 98.1 F 71 20 148/99 98 05/06/22 05:42 05/06/22 06:05 05/06/22 05:42 05/06/22 06:05 05/05/22 22:00 General appearance: Present: no acute distress, well-nourished Results - Labs CBC & Chem 7: 05/05/22 09:50 05/06/22 05:58 Labs: Laboratory Last Values WBC 6.2 K/mm3 (4.5-11.0) 05/05/22 09:50 RBC 3.70 M/mm3 (3.65-5.03) 05/05/22 09:50 Hgb 10.9 gm/dl (11.8-15.2) L 05/05/22 09:50 Hct 32.9 % (35.5-45.6) L 05/05/22 09:50 MCV 89 fl (84-94) 05/05/22 09:50 MCH 30 pg (28-32) 05/05/22 09:50 MCHC 33 % (32-34) 05/05/22 09:50 RDW 17.3 % (13.2-15.2) H 05/05/22 09:50 Plt Count 243 K/mm3 (140-440) 05/05/22 09:50 Lymph % (Auto) 30.4 % (13.4-35.0) 05/05/22 09:50 [place] % (Auto) 6.2 % (0.0-7.3) 05/05/22 09:50 Eos % (Auto) 2.6 % (0.0-4.3) 05/05/22 09:50 Baso % (Auto) 2.0 % (0.0-1.8) H 05/05/22 09:50 Lymph # (Auto) 1.9 K/mm3 (1.2-5.4) 05/05/22 09:50 [place] # (Auto) 0.4 K/mm3 (0.0-0.8) 05/05/22 09:50 Eos # (Auto) 0.2 K/mm3 (0.0-0.4) 05/05/22 09:50 Baso # (Auto) 0.1 K/mm3 (0.0-0.1) 05/05/22 09:50 Seg Neutrophils % 58.8 % (40.0-70.0) 05/05/22 09:50 Seg Neutrophils # 3.6 K/mm3 (1.8-7.7) 05/05/22 09:50 Sodium 137 mmol/L (137-145) 05/06/22 05:58 Potassium 4.1 mmol/L (3.6-5.0) 05/06/22 05:58 Chloride 104.2 mmol/L (98-107) 05/06/22 05:58 Carbon Dioxide 24 mmol/L (22-30) 05/06/22 05:58 Anion Gap 13 mmol/L 05/06/22 05:58 BUN 22 mg/dL (9-20) H 05/06/22 05:58 Creatinine 2.9 mg/dL (0.8-1.3) H 05/06/22 05:58 Estimated GFR 24 ml/min 05/06/22 05:58 BUN/Creatinine Ratio 8 % 05/06/22 05:58 Glucose 96 mg/dL (75-100) 05/06/22 05:58 POC Glucose 88 mg/dL (70-105) 05/06/22 07:47 Hemoglobin A1c 5.9 % (4-6) 05/05/22 09:50 Calcium 8.5 mg/dL (8.4-10.2) 05/06/22 05:58 Phosphorus 3.30 mg/dL (2.5-4.5) 05/04/22 12:23 Total Bilirubin 0.50 mg/dL (0.1-1.2) 05/05/22 09:50 AST 47 units/L (5-40) H 05/05/22 09:50 ALT 22 units/L (7-56) 05/05/22 09:50 Alkaline Phosphatase 50 units/L (35-129) 05/05/22 09:50 Total Creatine Kinase 1761 units/L (55-170) H 05/06/22 05:58 Total Protein 7.2 g/dL (6.3-8.2) 05/05/22 09:50 Albumin 4.4 g/dL (3.9-5) 05/05/22 09:50 Albumin/Globulin Ratio 1.6 % 05/05/22 09:50 PTH Intact 44.06 pg/mL (15-65) 05/04/22 12:23 Urine Color Straw (Yellow) 05/04/22 08:18 Urine Turbidity Clear (Clear) 05/04/22 08:18 Specific [place] (Man) 1.015 (1.003-1.030) 05/04/22 08:18 Ur Protein (Man) 3+ mg/dL (Negative) 05/04/22 08:18 Ur Ketones (Man) Negative (Negative) 05/04/22 08:18 Ur Nitrite (Man) Negative (Negative) 05/04/22 08:18 Ur Reducing Substances Not Reportable 05/04/22 08:18 Urine Bilirubin (Man) Negative (Negative) 05/04/22 08:18 Urine Ictotest Not Reportable 05/04/22 08:18 Leukocyte Esterase (Man) Negative (Negative) 05/04/22 08:18 Urine WBC (Auto) < 1.0 /HPF (0.0-6.0) 05/04/22 08:18 Urine RBC (Auto) < 1.0 /HPF (0.0-6.0) 05/04/22 08:18 U Epithel Cells (Auto) < 1.0 /HPF (0-13.0) 05/04/22 08:18 Urine RBC (Manual) Negative (Negative) 05/04/22 08:18 Vega/IV: Voiding Method Toilet Active Medications - Current Medications Current Medications: Generic Name Dose Route Start Last Admin Trade Name Seanq PRN Reason Stop Dose Admin Acetaminophen 650 mg 05/04/22 17:20 05/04/22 23:27 Acetaminophen 325 Mg Tab PO 650 mg Q4H PRN Administration Pain MILD(1-3)/Fever >100.5/FRANK Famotidine 10 mg 05/05/22 10:00 05/06/22 09:02 Famotidine 10 Mg Tab PO 10 mg BID HANNY Administration Heparin Sodium (Porcine) 5,000 unit 05/04/22 22:00 05/06/22 09:03 Heparin 5,000 Unit/1 Ml Vial SUB-Q 5,000 unit Q12HR HANNY Administration Hydralazine HCl 10 mg 05/04/22 23:37 05/05/22 00:13 Hydralazine 20 Mg/1 Ml Inj IV 10 mg Q6H PRN Administration Hypertension Hydralazine HCl 50 mg 05/05/22 14:00 05/06/22 06:05 Hydralazine 25 Mg Tab PO 50 mg Q8HR HANNY Administration Sodium Chloride 1,000 mls @ 125 mls/hr 05/05/22 10:00 05/06/22 09:07 Nacl 0.9% 1000 Ml IV 125 mls/hr DIRECT HANNY Administration Insulin Human Lispro 0 unit 05/05/22 07:30 05/06/22 08:51 Insulin Lispro 100 Unit/Ml SUB-Q Not Given ACHS [facility]AN[facility] Protocol Levofloxacin 500 mg 05/06/22 11:00 Levofloxacin 500 Mg Tab PO Q24HR [facility] Protocol Metronidazole 500 mg 05/06/22 14:00 Metronidazole 500 Mg Tab PO Q8HR [facility] Protocol Morphine Sulfate 2 mg 05/04/22 17:25 Morphine 2 Mg/1 Ml Inj IV Q4H PRN Pain, Moderate (4-6) Ondansetron HCl 4 mg 05/04/22 17:20 Ondansetron 4 Mg/2 Ml Inj IV Q8H PRN Nausea And Vomiting Oxycodone/Acetaminophen 1 tab 05/04/22 17:25 05/05/22 21:45 Oxycodone /Acetaminophen 5-325mg Tab PO 1 tab Q6H PRN Administration Pain, Moderate (4-6) Sodium Chloride 10 ml 05/04/22 22:00 05/06/22 09:06 Sodium Chloride 0.9% 10 Ml Flush Syringe IV 10 ml BID HANNY Administration Sodium Chloride 10 ml 05/04/22 17:20 Sodium Chloride 0.9% 10 Ml Flush Syringe IV PRN PRN LINE FLUSH Valsartan 160 mg 05/06/22 07:30 05/06/22 09:06 Valsartan 160mg Tab PO 160 mg BID HANNY Administration
[2022-05-06] MEDS ORDERED: levoFLOXacin 500 MG TAB PO SCH (11:00)
--- NOTE | 2022-05-06 11:47 | Progress Note ---
Assessment and Plan Assessment: Dizziness Acute Kidney Injury possibly 2/2 prerenal etiology, ? BP medication, ? hx of CKD, r/o obstruction Hypertension Plan: - Renal function reviewed, SCr level was 2.9 today, yesterday's was 3.0 - Unknown baseline serum creatinine - Pt with hx of HTN, possible underlying CKD 2/2 Hypertension - S/P 0.9% NS Bolus in ED - Renal US- No hydronephrosis. Medical renal disease. - UA showed 3+ protein - Urine protein, urine lytes, eosinophils-pending - CK level trending down - PTH and phosphorus is normal - Strict intake and output - Vega Catheter: No - Continue to monitor renal function - Renal plan reviewed by Dr Rodriguez Subjective Date of service: 05/06/22 Principal diagnosis: ARF on CKD Interval history: Patient seen lying in bed. No family at bedside. Objective - Vital Signs Vital signs: Vital Signs - 12hr 05/06/22 05/06/22 05:42 06:05 Temperature 98.1 F Pulse Rate 71 Respiratory 20 Rate Blood Pressure 148/99 148/99 - General Appearance General appearance: well-developed, appears stated age EENT: ATNC, PERRL Neck: supple Respiratory: Present: Decreased Breath Sounds Cardiology: S1S2 Gastrointestinal: normoactive bowel sounds Integumentary: warm and dry Neurologic: other (Awake) Musculoskeletal: other (No edema) - Lab 05/05/22 09:50 05/06/22 05:58 Most recent lab results Calcium 8.5 mg/dL (8.4-10.2) 05/06/22 05:58 Phosphorus 3.30 mg/dL (2.5-4.5) 05/04/22 12:23 Medications & Allergies - Medications Allergies/Adverse Reactions: Allergies No Known Allergies Allergy (Unverified 05/04/22 04:56) Home Medications: Home Medications Medication Instructions Recorded Confirmed Last Taken Type Famotidine [Pepcid] 10 mg PO BID #30 tablet 05/06/22 Unknown Rx ISOSORBIDE MONOnitrate [Imdur ER] 30 mg PO DAILY #30 tab.er.24h 05/06/22 Unknown Rx Vancomycin HCl 125 mg PO QID #40 cap 05/06/22 Unknown Rx hydrALAZINE [Apresoline TAB] 50 mg PO Q8HR #120 tablet 05/06/22 Unknown Rx metroNIDAZOLE [Flagyl TAB] 500 mg PO Q8HR #30 tablet 05/06/22 Unknown Rx oxyCODONE /ACETAMINOPHEN [Percocet 1 tab PO Q6H PRN #10 tablet 05/06/22 Unknown Rx 5/325 mg] Active Medications: Generic Name Dose Route Start Last Admin Trade Name Freq PRN Reason Stop Dose Admin Acetaminophen 650 mg 05/04/22 17:20 05/04/22 23:27 Acetaminophen 325 Mg Tab PO 650 mg Q4H PRN Administration Pain MILD(1-3)/Fever >100.5/FRANK Famotidine 10 mg 05/05/22 10:00 05/06/22 09:02 Famotidine 10 Mg Tab PO 10 mg BID HANNY Administration Heparin Sodium (Porcine) 5,000 unit 05/04/22 22:00 05/06/22 09:03 Heparin 5,000 Unit/1 Ml Vial SUB-Q 5,000 unit Q12HR HANNY Administration Hydralazine HCl 10 mg 05/04/22 23:37 05/05/22 00:13 Hydralazine 20 Mg/1 Ml Inj IV 10 mg Q6H PRN Administration Hypertension Hydralazine HCl 50 mg 05/05/22 14:00 05/06/22 06:05 Hydralazine 25 Mg Tab PO 50 mg Q8HR HANNY Administration Sodium Chloride 1,000 mls @ 125 mls/hr 05/05/22 10:00 05/06/22 09:07 Nacl 0.9% 1000 Ml IV 125 mls/hr DIRECT HANNY Administration Insulin Human Lispro 0 unit 05/05/22 07:30 05/06/22 08:51 Insulin Lispro 100 Unit/Ml SUB-Q Not Given ACHS HANNY Protocol Levofloxacin 750 mg 05/06/22 12:00 Levofloxacin 750 Mg Tab PO Q48H HANNY Metronidazole 500 mg 05/06/22 14:00 Metronidazole 500 Mg Tab PO Q8HR HANNY Protocol Morphine Sulfate 2 mg 05/04/22 17:25 Morphine 2 Mg/1 Ml Inj IV Q4H PRN Pain, Moderate (4-6) Ondansetron HCl 4 mg 05/04/22 17:20 Ondansetron 4 Mg/2 Ml Inj IV Q8H PRN Nausea And Vomiting Oxycodone/Acetaminophen 1 tab 05/04/22 17:25 05/05/22 21:45 Oxycodone /Acetaminophen 5-325mg Tab PO 1 tab Q6H PRN Administration Pain, Moderate (4-6) Sodium Chloride 10 ml 05/04/22 22:00 05/06/22 09:06 Sodium Chloride 0.9% 10 Ml Flush Syringe IV 10 ml BID HANNY Administration Sodium Chloride 10 ml 05/04/22 17:20 Sodium Chloride 0.9% 10 Ml Flush Syringe IV PRN PRN LINE FLUSH Valsartan 160 mg 05/06/22 07:30 05/06/22 09:06 Valsartan 160mg Tab PO 160 mg BID HANNY Administration
[2022-05-06] MEDS ORDERED: levoFLOXacin 750 MG TAB PO SCH (12:00)
[2022-05-06] MEDS: metroNIDAZOLE 500 MG TAB PO SCH ×2 (13:21→22:13)
--- NOTE | 2022-05-06 13:29 | Consultation ---
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 He states the pain started 1 or 2 days ago. He has been out of work for about a month because he was told by his boss that he was sick. He states he has been having problems with blood pressure and swelling of his legs. Patient states that his kidney is hurting, with walking, and he was getting dizzy. He denies any abdominal pain, nausea, vomiting. He denies change in bowel movements or diarrhea. There is been no GI bleeding of any sort. Medications reviewed Past History Past Medical History: diabetes, hypertension Past Surgical History: No surgical history Social history: lives with family, full code, other (Alcohol use socially). denies: smoking Family history: no significant family history Medications and Allergies Allergies Allergy/AdvReac Type Severity Reaction Status Date / Time No Known Allergies Allergy Unverified 05/04/22 04:56 Home Medications Medication Instructions Recorded Confirmed Last Taken Type Famotidine [Pepcid] 10 mg PO BID #30 tablet 05/06/22 Unknown Rx ISOSORBIDE MONOnitrate [Imdur ER] 30 mg PO DAILY #30 tab.er.24h 05/06/22 Unknown Rx Vancomycin HCl 125 mg PO QID #40 cap 05/06/22 Unknown Rx hydrALAZINE [Apresoline TAB] 50 mg PO Q8HR #120 tablet 05/06/22 Unknown Rx metroNIDAZOLE [Flagyl TAB] 500 mg PO Q8HR #30 tablet 05/06/22 Unknown Rx oxyCODONE /ACETAMINOPHEN [Percocet 1 tab PO Q6H PRN #10 tablet 05/06/22 Unknown Rx 5/325 mg] Active Meds: Active Medications Acetaminophen (Acetaminophen 325 Mg Tab) 650 mg PO Q4H PRN PRN Reason: Pain MILD(1-3)/Fever >100.5/FRANK Last Admin: 05/04/22 23:27 Dose: 650 mg Famotidine (Famotidine 10 Mg Tab) 10 mg PO BID HANNY Last Admin: 05/06/22 09:02 Dose: 10 mg Heparin Sodium (Porcine) (Heparin 5,000 Unit/1 Ml Vial) 5,000 unit SUB-Q Q12HR [facility] Last Admin: 05/06/22 09:03 Dose: 5,000 unit Hydralazine HCl (Hydralazine 20 Mg/1 Ml Inj) 10 mg IV Q6H PRN PRN Reason: Hypertension Last Admin: 05/05/22 00:13 Dose: 10 mg Hydralazine HCl (Hydralazine 25 Mg Tab) 50 mg PO Q8HR [facility] Last Admin: 05/06/22 06:05 Dose: 50 mg Sodium Chloride (Nacl 0.9% 1000 Ml) 1,000 mls @ 125 mls/hr IV DIRECT [facility] Last Admin: 05/06/22 09:07 Dose: 125 mls/hr Insulin Human Lispro (Insulin Lispro 100 Unit/Ml) 0 unit SUB-Q ACHS [facility]; Protocol Last Admin: 05/06/22 08:51 Dose: Not Given Levofloxacin (Levofloxacin 750 Mg Tab) 750 mg PO Q48H [facility] Last Admin: 05/06/22 13:21 Dose: 750 mg Metronidazole (Metronidazole 500 Mg Tab) 500 mg PO Q8HR [facility]; Protocol Last Admin: 05/06/22 13:21 Dose: 500 mg Morphine Sulfate (Morphine 2 Mg/1 Ml Inj) 2 mg IV Q4H PRN PRN Reason: Pain, Moderate (4-6) Ondansetron HCl (Ondansetron 4 Mg/2 Ml Inj) 4 mg IV Q8H PRN PRN Reason: Nausea And Vomiting Oxycodone/Acetaminophen (Oxycodone /Acetaminophen 5-325mg Tab) 1 tab PO Q6H PRN PRN Reason: Pain, Moderate (4-6) Last Admin: 05/05/22 21:45 Dose: 1 tab Sodium Chloride (Sodium Chloride 0.9% 10 Ml Flush Syringe) 10 ml IV BID [facility] Last Admin: 05/06/22 09:06 Dose: 10 ml Sodium Chloride (Sodium Chloride 0.9% 10 Ml Flush Syringe) 10 ml IV PRN PRN PRN Reason: LINE FLUSH Valsartan (Valsartan 160mg Tab) 160 mg PO BID [facility] Last Admin: 05/06/22 13:18 Dose: Not Given Review of Systems All systems: negative (As noted. There is a language barrier to getting detailed symptoms.) Exam - Constitutional Vitals: Temp Pulse Resp BP Pulse Ox 98.1 F 71 20 148/99 98 05/06/22 05:42 05/06/22 06:05 05/06/22 05:42 05/06/22 06:05 05/05/22 22:00 General appearance: Present: mild distress (With trying to get up or move, with left low back pain), obese (Morbidly) - EENT Eyes: Present: PERRL, EOM intact ENT: hearing intact - Respiratory Respiratory effort: normal Respiratory: bilateral: CTA - Cardiovascular Rhythm: regular Heart Sounds: Present: S1 & S2 - Extremities Extremity abnormal: edema (2+) - Abdominal General gastrointestinal: Present: soft, non-tender, normal bowel sounds - Musculoskeletal Musculoskeletal: other (Patient has tenderness in left psoas region to pressure) Results - Labs CBC & Chem 7: 05/05/22 09:50 05/06/22 05:58 Labs: Abnormal lab results 05/05/22 05/05/22 05/05/22 Range/Units 11:07 15:54 19:29 BUN (9-20) mg/dL Creatinine (0.8-1.3) mg/dL POC Glucose 128 H 109 H (70-105) mg/dL Total Creatine Kinase 1944 H (55-170) units/L 05/06/22 05/06/22 Range/Units 01:39 05:58 BUN 22 H (9-20) mg/dL Creatinine 2.9 H (0.8-1.3) mg/dL POC Glucose 138 H (70-105) mg/dL Total Creatine Kinase 1761 H (55-170) units/L - Imaging and Cardiology CT scan - abdomen: report reviewed (Mild ascending colon wall thickening, collapse versus colitis) Assessment and Plan 1. Left lower quadrant painpatient has no abdominal pain on exam or by history for me. His main complaint is of left low back and flank pain. This appears to be more musculoskeletal, or it may be related to myositis. No further evaluation from GI standpoint. Defer ongoing work-up to hospitalist. 2. Colitison CT scan, involving ascending colon. Patient has no lower GI symptoms. Would not pursue further as an inpatient, and would have patient follow-up as an outpatient to see if further evaluation warranted. No further GI recommendations. We will sign off. Please call if needed.
[2022-05-06] MEDS: ACETAMINOPHEN 325 MG TAB PO PRN (16:17)
[2022-05-07] MEDS: hydrALAZINE 25 MG TAB PO SCH ×3 (05:38→22:00)
[2022-05-07] MEDS: metroNIDAZOLE 500 MG TAB PO SCH ×3 (05:38→22:00)
[2022-05-07 05:42] LABS: Hematocrit 31.5 % (35.5-45.6); Hemoglobin 10.6 gm/dl (11.8-15.2); Mean Corpuscular HGB Conc 34 % (32-34); Mean Corpuscular Volume 89 fl (84-94); Platelet Count 219 K/mm3 (140-440); Red Blood Count 3.54 M/mm3 (3.65-5.03); Red Cell Distribution Width 17.2 % (13.2-15.2)
[2022-05-07 06:01] LABS: Calcium 8.5 mg/dL (8.4-10.2)
[2022-05-07] MEDS: SODIUM CHLORIDE 0.9% 1000 ML 1,000 ML IV SCH ×2 (06:23→16:31)
[2022-05-07] MEDS: INSULIN LISPRO 100 UNIT/ML SUB-Q SCH ×4 (08:15→22:01)
[2022-05-07] MEDS: VALSARTAN 160MG TAB PO SCH (10:27)
[2022-05-07] MEDS: FAMOTIDINE 10 MG TAB PO SCH ×2 (10:27→22:01)
[2022-05-07] MEDS: HEPARIN 5,000 UNIT/1 ML VIAL SUB-Q SCH ×2 (10:27→22:01)
--- NOTE | 2022-05-07 11:02 | Progress Note ---
Assessment and Plan Assessment: Dizziness Acute Kidney Injury possibly 2/2 prerenal etiology, ? BP medication, ? hx of CKD, r/o obstruction Hypertension Plan: - Renal function reviewed, SCr level was 3.1 today, yesterday's was 2.9. - Stop Diovan due to advanced renal failure and unknown baseline - Pt with hx of HTN, possible underlying CKD 2/2 Hypertension - Renal US- No hydronephrosis. Medical renal disease. - UA showed 3+ protein. Obtain protein/creatinine ratio. - Urine protein, urine lytes, eosinophils-pending - CK level 1871 yesterday - On NS@ 125 ml/hr - PTH and phosphorus is normal - Strict intake and output - Vega Catheter: No - Continue to monitor renal function - Renal plan reviewed by Dr Logan Subjective Date of service: 05/07/22 Principal diagnosis: ARF on CKD Interval history: Patient seen lying in bed. No family at bedside. Objective - Vital Signs Vital signs: Vital Signs - 12hr 05/07/22 05/07/22 05/07/22 05:09 05:38 10:27 Temperature 98.0 F Pulse Rate 71 71 69 Respiratory 20 Rate Blood Pressure 148/81 148/71 135/94 O2 Sat by Pulse 96 Oximetry - General Appearance General appearance: well-developed, appears stated age EENT: ATNC, PERRL, hearing intact, vision intact Neck: no JVD, supple Respiratory: Present: Decreased Breath Sounds Cardiology: S1S2 Gastrointestinal: normoactive bowel sounds Integumentary: warm and dry Neurologic: other (Awake and alert) Musculoskeletal: other (No edema) - Lab 05/07/22 05:12 05/07/22 05:12 Most recent lab results Calcium 8.5 mg/dL (8.4-10.2) 05/07/22 05:12 Phosphorus 3.30 mg/dL (2.5-4.5) 05/04/22 12:23 Medications & Allergies - Medications Allergies/Adverse Reactions: Allergies No Known Allergies Allergy (Unverified 05/04/22 04:56) Home Medications: Home Medications Medication Instructions Recorded Confirmed Last Taken Type Famotidine [Pepcid] 10 mg PO BID #30 tablet 05/06/22 Unknown Rx ISOSORBIDE MONOnitrate [Imdur ER] 30 mg PO DAILY #30 tab.er.24h 05/06/22 Unknown Rx Lisinopril [Zestril TAB] 2.5 mg PO DAILY 05/06/22 05/06/22 Unknown History Simvastatin 20 mg PO QHS 05/06/22 05/06/22 Unknown History Vancomycin HCl 125 mg PO QID #40 cap 05/06/22 Unknown Rx hydrALAZINE [Apresoline TAB] 50 mg PO Q8HR #120 tablet 05/06/22 Unknown Rx metroNIDAZOLE [Flagyl TAB] 500 mg PO Q8HR #30 tablet 05/06/22 Unknown Rx oxyCODONE /ACETAMINOPHEN [Percocet 1 tab PO Q6H PRN #10 tablet 05/06/22 Unknown Rx 5/325 mg] Active Medications: Generic Name Dose Route Start Last Admin Trade Name Freq PRN Reason Stop Dose Admin Acetaminophen 650 mg 05/04/22 17:20 05/06/22 16:17 Acetaminophen 325 Mg Tab PO 650 mg Q4H PRN Administration Pain MILD(1-3)/Fever >100.5/FRANK Famotidine 10 mg 05/05/22 10:00 05/07/22 10:27 Famotidine 10 Mg Tab PO 10 mg BID HANNY Administration Heparin Sodium (Porcine) 5,000 unit 05/04/22 22:00 05/07/22 10:27 Heparin 5,000 Unit/1 Ml Vial SUB-Q 5,000 unit Q12HR HANNY Administration Hydralazine HCl 10 mg 05/04/22 23:37 05/05/22 00:13 Hydralazine 20 Mg/1 Ml Inj IV 10 mg Q6H PRN Administration Hypertension Hydralazine HCl 50 mg 05/05/22 14:00 05/07/22 05:38 Hydralazine 25 Mg Tab PO 50 mg Q8HR HANNY Administration Sodium Chloride 1,000 mls @ 125 mls/hr 05/05/22 10:00 05/07/22 06:23 Nacl 0.9% 1000 Ml IV 125 mls/hr DIRECT HANNY Administration Insulin Human Lispro 0 unit 05/05/22 07:30 05/07/22 08:15 Insulin Lispro 100 Unit/Ml SUB-Q Not Given ACHS HANNY Protocol Levofloxacin 750 mg 05/06/22 12:00 05/06/22 13:21 Levofloxacin 750 Mg Tab PO 750 mg Q48H HANNY Administration Methocarbamol 500 mg 05/06/22 22:00 05/07/22 10:27 Methocarbamol 500 Mg Tab PO 500 mg BID HANNY Administration Metronidazole 500 mg 05/06/22 14:00 05/07/22 05:38 Metronidazole 500 Mg Tab PO 500 mg Q8HR HANNY Administration Protocol Morphine Sulfate 2 mg 05/04/22 17:25 Morphine 2 Mg/1 Ml Inj IV Q4H PRN Pain, Moderate (4-6) Ondansetron HCl 4 mg 05/04/22 17:20 Ondansetron 4 Mg/2 Ml Inj IV Q8H PRN Nausea And Vomiting Oxycodone/Acetaminophen 1 tab 05/04/22 17:25 05/05/22 21:45 Oxycodone /Acetaminophen 5-325mg Tab PO 1 tab Q6H PRN Administration Pain, Moderate (4-6) Sodium Chloride 10 ml 05/04/22 22:00 05/07/22 10:28 Sodium Chloride 0.9% 10 Ml Flush Syringe IV 10 ml BID HANNY Administration Sodium Chloride 10 ml 05/04/22 17:20 Sodium Chloride 0.9% 10 Ml Flush Syringe IV PRN PRN LINE FLUSH Valsartan 160 mg 05/06/22 07:30 05/07/22 10:27 Valsartan 160mg Tab PO 160 mg BID HANNY Administration
--- NOTE | 2022-05-07 14:57 | Progress Note ---
Assessment and Plan Assessment and plan: 05/05: Patient still with abdominal discomfort we will obtain a CT abdomen pelvis noncontrast. Renal function reviewed this morning creatinine is down to 3.0 we will change fluids to normal saline at 125 cc an hour. We will hold valsartan at this time. Start patient on hydralazine as patient still has hypertensive urgency. May need to add Norvasc or isosorbide for better control of blood pressure if no improvement will hydralazine. 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 We will also obtain orthostatic pressures considering dizziness reported earlier. 05/06: Patient continues to have mild discomfort in the abdomen imaging study CT abdomen and pelvis indicates possible mild colitis. Colonoscopy recommended to rule out a mass. Have consulted GI. Patient is tolerating diet although still reports pain which is amendable to [place]. Will await GI evaluation. Renal function slowly improving down to 2.9 there may be an underlying CKD to this patient which I also advised the patient about. I have also discussed the importance of weight loss considering a BMI of 36.5 which appears to mildly be u nderstated in this patient. He does have a large neck for which have also recommended an outpatient sleep study evaluation. (1) NANCY (acute kidney injury) on CKD Stage III Current Visit: Yes Status: Acute Plan to address problem: NANCY secondary to volume depletion Nephrology consult requested Heat exposure IV fluids for now (2) Rhabdomyolysis Current Visit: Yes Status: Acute Qualifiers: Rhabdomyolysis type: non-traumatic Qualified Code(s): M62.82 - Rhabdomyolysis Plan to address problem: IV fluids for now CKs 2651. Repeat CKs. (3) Hypertension Current Visit: Yes Status: Chronic Qualifiers: Hypertension type: primary hypertension Qualified Code(s): I10 - Essential (primary) hypertension Plan to address problem: Continue antihypertensives and adjust medications (4) T2DM (type 2 diabetes mellitus) Current Visit: Yes Status: Chronic Qualifiers: Diabetes mellitus termite technician insulin use: unspecified skilled nursing insulin use status Plan to address problem: Patient is not clear about his diabetes history Patient not on any medications Check hemoglobin A1c Accu-Cheks and coverage for now Prescribed metformin and SGLT2 inhibitors if necessary (5) #Obesity #Weight loss counseling #Exercise counseling - BMI 36.0 - Counseled patient on the importance of weight loss, incorporating exercise, and dietary changes (lean meats, fresh fruits and vegetables, and water intake). Patient expresses understanding. - Time: +15 min (6) Left lower quadrant abdominal pain secondary to presumed infectious colitis- ruled out (7) anemia possible of chronic disease (8) Advance care planning Current Visit: Yes Status: Acute Plan to address problem: Disease education conducted, care plan discussed, diagnosis and prognosis discussed. Patient is full code. Patient acknowledges understanding with care plan. +30 minutes. Disposition Plan: Continue medical management Total Time Spent with Patient (Minutes): 45 min History Interval history: No acute events overnight. Hospitalist Physical - Constitutional Vitals: Temp Pulse Resp BP Pulse Ox 98.3 F 73 18 139/100 94 05/07/22 11:53 05/07/22 11:53 05/07/22 11:53 05/07/22 11:53 05/07/22 11:53 General appearance: Present: no acute distress, obese (Morbidly) - EENT Eyes: Present: PERRL, EOM intact ENT: hearing intact, clear oral mucosa, dentition normal - Neck Neck: Present: supple, normal ROM - Respiratory Respiratory effort: normal Respiratory: bilateral: CTA - Cardiovascular Rhythm: regular Heart Sounds: Present: S1 & S2 - Extremities Extremities: no ischemia, pulses intact, pulses symmetrical, No edema, normal temperature, normal color, Full ROM Peripheral Pulses: within normal limits - Abdominal General gastrointestinal: soft, non-tender, non-distended, normal bowel sounds - Integumentary Integumentary: Present: clear, warm, dry - Psychiatric Psychiatric: appropriate mood/affect, intact judgment & insight, memory intact, cooperative - Neurologic Neurologic: CNII-XII intact, moves all extremities - Allied Health Allied health notes reviewed: nursing Results - Labs CBC & Chem 7: 05/07/22 05:12 05/07/22 05:12 Labs: Laboratory Last Values WBC 6.5 K/mm3 (4.5-11.0) 05/07/22 05:12 RBC 3.54 M/mm3 (3.65-5.03) L 05/07/22 05:12 Hgb 10.6 gm/dl (11.8-15.2) L 05/07/22 05:12 Hct 31.5 % (35.5-45.6) L 05/07/22 05:12 MCV 89 fl (84-94) 05/07/22 05:12 MCH 30 pg (28-32) 05/07/22 05:12 MCHC 34 % (32-34) 05/07/22 05:12 RDW 17.2 % (13.2-15.2) H 05/07/22 05:12 Plt Count 219 K/mm3 (140-440) 05/07/22 05:12 Lymph % (Auto) 30.4 % (13.4-35.0) 05/05/22 09:50 Darke % (Auto) 6.2 % (0.0-7.3) 05/05/22 09:50 Eos % (Auto) 2.6 % (0.0-4.3) 05/05/22 09:50 Baso % (Auto) 2.0 % (0.0-1.8) H 05/05/22 09:50 Lymph # (Auto) 1.9 K/mm3 (1.2-5.4) 05/05/22 09:50 Darke # (Auto) 0.4 K/mm3 (0.0-0.8) 05/05/22 09:50 Eos # (Auto) 0.2 K/mm3 (0.0-0.4) 05/05/22 09:50 Baso # (Auto) 0.1 K/mm3 (0.0-0.1) 05/05/22 09:50 Seg Neutrophils % 58.8 % (40.0-70.0) 05/05/22 09:50 Seg Neutrophils # 3.6 K/mm3 (1.8-7.7) 05/05/22 09:50 Sodium 136 mmol/L (137-145) L 05/07/22 05:12 Potassium 4.1 mmol/L (3.6-5.0) 05/07/22 05:12 Chloride 102.8 mmol/L (98-107) 05/07/22 05:12 Carbon Dioxide 26 mmol/L (22-30) 05/07/22 05:12 Anion Gap 11 mmol/L 05/07/22 05:12 BUN 20 mg/dL (9-20) 05/07/22 05:12 Creatinine 3.1 mg/dL (0.8-1.3) H 05/07/22 05:12 Estimated GFR 22 ml/min 05/07/22 05:12 BUN/Creatinine Ratio 6 % 05/07/22 05:12 Glucose 93 mg/dL (75-100) 05/07/22 05:12 POC Glucose 115 mg/dL (70-105) H 05/07/22 11:16 Hemoglobin A1c 5.9 % (4-6) 05/05/22 09:50 Calcium 8.5 mg/dL (8.4-10.2) 05/07/22 05:12 Phosphorus 3.30 mg/dL (2.5-4.5) 05/04/22 12:23 Total Bilirubin 0.50 mg/dL (0.1-1.2) 05/05/22 09:50 AST 47 units/L (5-40) H 05/05/22 09:50 ALT 22 units/L (7-56) 05/05/22 09:50 Alkaline Phosphatase 50 units/L (35-129) 05/05/22 09:50 Total Creatine Kinase 1871 units/L (55-170) H 05/06/22 22:15 Total Protein 7.2 g/dL (6.3-8.2) 05/05/22 09:50 Albumin 4.4 g/dL (3.9-5) 05/05/22 09:50 Albumin/Globulin Ratio 1.6 % 05/05/22 09:50 PTH Intact 44.06 pg/mL (15-65) 05/04/22 12:23 Urine Color Straw (Yellow) 05/04/22 08:18 Urine Turbidity Clear (Clear) 05/04/22 08:18 Specific [place] (Man) 1.015 (1.003-1.030) 05/04/22 08:18 Ur Protein (Man) 3+ mg/dL (Negative) 05/04/22 08:18 Ur Ketones (Man) Negative (Negative) 05/04/22 08:18 Ur Nitrite (Man) Negative (Negative) 05/04/22 08:18 Ur Reducing Substances Not Reportable 05/04/22 08:18 Urine Bilirubin (Man) Negative (Negative) 05/04/22 08:18 Urine Ictotest Not Reportable 05/04/22 08:18 Leukocyte Esterase (Man) Negative (Negative) 05/04/22 08:18 Urine WBC (Auto) < 1.0 /HPF (0.0-6.0) 05/04/22 08:18 Urine RBC (Auto) < 1.0 /HPF (0.0-6.0) 05/04/22 08:18 U Epithel Cells (Auto) < 1.0 /HPF (0-13.0) 05/04/22 08:18 Urine RBC (Manual) Negative (Negative) 05/04/22 08:18 Vega/IV: Voiding Method Toilet Active Medications - Current Medications Current Medications: Generic Name Dose Route Start Last Admin Trade Name Freq PRN Reason Stop Dose Admin Acetaminophen 650 mg 05/04/22 17:20 05/06/22 16:17 Acetaminophen 325 Mg Tab PO 650 mg Q4H PRN Administration Pain MILD(1-3)/Fever >100.5/FRANK Famotidine 10 mg 05/05/22 10:00 05/07/22 10:27 Famotidine 10 Mg Tab PO 10 mg BID HANNY Administration Heparin Sodium (Porcine) 5,000 unit 05/04/22 22:00 05/07/22 10:27 Heparin 5,000 Unit/1 Ml Vial SUB-Q 5,000 unit Q12HR HANNY Administration Hydralazine HCl 10 mg 05/04/22 23:37 05/05/22 00:13 Hydralazine 20 Mg/1 Ml Inj IV 10 mg Q6H PRN Administration Hypertension Hydralazine HCl 50 mg 05/05/22 14:00 05/07/22 05:38 Hydralazine 25 Mg Tab PO 50 mg Q8HR HANNY Administration Sodium Chloride 1,000 mls @ 125 mls/hr 05/05/22 10:00 05/07/22 06:23 Nacl 0.9% 1000 Ml IV 125 mls/hr DIRECT HANNY Administration Insulin Human Lispro 0 unit 05/05/22 07:30 05/07/22 12:47 Insulin Lispro 100 Unit/Ml SUB-Q Not Given ACHS [facility] Protocol Levofloxacin 750 mg 05/06/22 12:00 05/06/22 13:21 Levofloxacin 750 Mg Tab PO 750 mg Q48H HANNY Administration Methocarbamol 500 mg 05/06/22 22:00 05/07/22 10:27 Methocarbamol 500 Mg Tab PO 500 mg BID HANNY Administration Metronidazole 500 mg 05/06/22 14:00 05/07/22 05:38 Metronidazole 500 Mg Tab PO 500 mg Q8HR HANNY Administration Protocol Morphine Sulfate 2 mg 05/04/22 17:25 Morphine 2 Mg/1 Ml Inj IV Q4H PRN Pain, Moderate (4-6) Ondansetron HCl 4 mg 05/04/22 17:20 Ondansetron 4 Mg/2 Ml Inj IV Q8H PRN Nausea And Vomiting Oxycodone/Acetaminophen 1 tab 05/04/22 17:25 05/05/22 21:45 Oxycodone /Acetaminophen 5-325mg Tab PO 1 tab Q6H PRN Administration Pain, Moderate (4-6) Sodium Chloride 10 ml 05/04/22 22:00 05/07/22 10:28 Sodium Chloride 0.9% 10 Ml Flush Syringe IV 10 ml BID HANNY Administration Sodium Chloride 10 ml 05/04/22 17:20 Sodium Chloride 0.9% 10 Ml Flush Syringe IV PRN PRN LINE FLUSH
[2022-05-08] MEDS: SODIUM CHLORIDE 0.9% 1000 ML 1,000 ML IV SCH (03:14)
[2022-05-08] MEDS: hydrALAZINE 25 MG TAB PO SCH (05:40)
[2022-05-08] MEDS: metroNIDAZOLE 500 MG TAB PO SCH (05:40)
[2022-05-08 07:03] LABS: Calcium 8.1 mg/dL (8.4-10.2)
[2022-05-08] MEDS: INSULIN LISPRO 100 UNIT/ML SUB-Q SCH (08:41)
--- NOTE | 2022-05-08 09:31 | Discharge Summary ---
Providers - Providers Date of Admission: 05/04/22 17:20 Date of discharge: 05/08/22 Attending physician: ELIUD GARRETT MD 05/04/22 17:25 Consult to Physician [CONS] Routine Comment: Consulting Provider: EARLINE BOYER Physician Instructions: Reason For Exam: NANCY 05/06/22 10:08 Consult to Physician [CONS] Routine Comment: Consulting Provider: LUIS ANDERSON Physician Instructions: Reason For Exam: colitis Primary care physician: SEBASTIAN REGAN Hospitalization Reason for admission: NANCY on CKD stage III, rhabdomyolysis Condition: Stable Pertinent studies: Reviewed. Procedures: None. Hospital course: The patient is a 41-year-old male past medical history of uncontrolled diabetes, xsr-dbjkgum-[id number] type 2 diabetes mellitus with hyperglycemia, and morbid obesity who presented to the ED with complaints of dizziness. The patient endorsed working out in the sun for approximately 12 hours a day. The patient also admitted to starting new antihypertensives approximately 2 weeks prior to presentation but he was unable to recall the name of the medication. The patient describes experiencing dizziness since starting his medication. Patient denied any chest pain or abdominal pain and he was alert and oriented x3. In the ED, patient was found to be hemodynamically stable with a blood pressure of 169/114. Patient's labs are remarkable for creatinine of 3.1 (baseline unknown) and hemoglobin of 10.6. 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 Patient also described having abdominal pain which triggered a CT abdomen and pe lvis without contrast revealing possible mild colitis. Enterology was consulted, and they deemed his left lower quadrant pain to be secondary to musculoskeletal etiology. They recommended discontinuing antibiotics, and that the patient could follow in the outpatient setting should his symptoms continue to progress. Patient was counseled at length about the importance of following up with her primary care provider, medication adherence, and increasing his fluid intake. Patient expressed understanding. Patient is medically cleared for discharge. 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, rhabdomyolysis, hypertension, lyh-tbrrchj-ztjtlerjn type 2 diabetes mellitus with hyperglycemia, morbid obesity, possible anemia of chronic disease Time spent for discharge: 45 min Core Measure Documentation - Palliative Care Palliative Care/ Comfort Measures: Not Applicable - Core Measures Any of the following diagnoses?: none Exam - Constitutional Vitals: Temp Pulse Resp BP Pulse Ox 97.4 F L 69 18 126/85 90 05/08/22 04:05/08/22 04:05/08/22 04:11 05/08/22 04:05/08/22 04:11 General appearance: Present: no acute distress, well-nourished, obese - EENT Eyes: Present: PERRL, EOM intact ENT: hearing intact, clear oral mucosa, dentition normal - Neck Neck: Present: supple, normal ROM - Respiratory Respiratory effort: normal Respiratory: bilateral: CTA - Cardiovascular Rhythm: regular Heart Sounds: Present: S1 & S2 - Extremities Extremities: no ischemia, pulses intact, pulses symmetrical, No edema, normal temperature, normal color, Full ROM Peripheral Pulses: within normal limits - Abdominal General gastrointestinal: Present: soft, non-tender, non-distended, normal bowel sounds Male genitourinary: Present: deferred - Rectal Rectal Exam: deferred - Integumentary Integumentary: Present: clear, warm, dry - Musculoskeletal Musculoskeletal: strength equal bilaterally - Psychiatric Psychiatric: appropriate mood/affect, intact judgment & insight, memory intact, cooperative - Neurologic Neurologic: CNII-XII intact, moves all extremities - Allied Health Allied health notes reviewed: nursing Plan Activity: advance as tolerated Diet: low salt, diabetic Additional Instructions: The patient is a 41-year-old male past medical history of uncontrolled diabetes, cqo-dwmeetr-kmzaevdkv type 2 diabetes mellitus with hyperglycemia, and morbid obesity who presented to the ED with complaints of dizziness. The patient endorsed working out in the sun for approximately 12 hours a day. The patient also admitted to starting new antihypertensives approximately 2 weeks prior to presentation but he was unable to recall the name of the medication. The patient describes experiencing dizziness since starting his medication. Patient denied any chest pain or abdominal pain and he was alert and oriented x3. In the ED, patient was found to be hemodynamically stable with a blood pressure of 169/114. Patient's labs are remarkable for creatinine of 3.1 (baseline unknown) and hemoglobin of 10.6. 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 Patient also described having abdominal pain which triggered a CT abdomen and pelvis without contrast revealing possible mild colitis. Enterology was consulted, and they deemed his left lower quadrant pain to be secondary to musculoskeletal etiology. They recommended discontinuing antibiotics, and that the patient could follow in the outpatient setting should his symptoms continue to progress. Patient was counseled at length about the importance of following up with her primary care provider, medication adherence, and increasing his fluid intake. Patient expressed u nderstanding. Patient is medically cleared for discharge. Care Plan Goals: Patient is medically cleared for discharge. Assessment: The patient is a 41-year-old male past medical history of uncontrolled diabetes, viy-ezgwufd-oieaaamsy type 2 diabetes mellitus with hyperglycemia, and morbid obesity who presented to the ED with complaints of dizziness. The patient endorsed working out in the sun for approximately 12 hours a day. The patient also admitted to starting new antihypertensives approximately 2 weeks prior to presentation but he was unable to recall the name of the medication. The patient describes experiencing dizziness since starting his medication. Patient denied any chest pain or abdominal pain and he was alert and oriented x3. In the ED, patient was found to be hemodynamically stable with a blood pressure of 169/114. Patient's labs are remarkable for creatinine of 3.1 (baseline unknown) and hemoglobin of 10.6. 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 Patient also described having abdominal pain which triggered a CT abdomen and pelvis without contrast revealing possible mild colitis. Enterology was consulted, and they deemed his left lower quadrant pain to be secondary to musculoskeletal etiology. They recommended discontinuing antibiotics, and that the patient could follow in the outpatient setting should his symptoms continue to progress. Patient was counseled at length about the importance of following up with her primary care provider, medication adherence, and increasing his fluid intake. Patient expressed understanding. Patient is medically cleared for discharge. Follow up with: LUIS ANDERSON MD [Staff Physician] - 7 Days JANET SNOW MD [Staff Physician] - 7 Days Forms: Work/School Release Form Prescriptions: amLODIPine 10 mg PO DAILY #30 tab hydrALAZINE [Apresoline TAB] 50 mg PO Q8HR #120 tablet Famotidine [Pepcid] 10 mg PO BID #30 tablet Vancomycin HCl 125 mg PO QID #40 cap
[2022-05-08] MEDS: FAMOTIDINE 10 MG TAB PO SCH (09:44)
[2022-05-08] MEDS: HEPARIN 5,000 UNIT/1 ML VIAL SUB-Q SCH (09:44)
[2022-05-08 12:08] VITALS: BP 150/107
== END 2022-05-08 12:18 | disposition home or self-care (01) | DRG 683 ==
LOC: ED 04:31 → 3A 17:20
PROVIDERS: ADMIT Internal Medicine; ATTEND Student in an Organized Health Care Education/Training Program
DX: N17.0 Acute kidney failure with tubular necrosis (principal); M62.82 Rhabdomyolysis; E66.01 Morbid (severe) obesity due to excess calories; Z68.36 Body mass index [BMI] 36.0-36.9, adult; N18.30 Chronic kidney disease, stage 3 unspecified; E11.22 Type 2 diabetes mellitus with diabetic chronic kidney disease; I12.9 Hypertensive chronic kidney disease with stage 1 through stage 4 chronic kidney disease, or unspecified chronic kidney disease; E11.65 Type 2 diabetes mellitus with hyperglycemia; D64.9 Anemia, unspecified
CPT/HCPCS: 36415; 74176; 76770; 80048; 80053; 81001; 82550; 82962; 83036; 83970; 84100; 85025; 85027; G0378; J3490; J0360; J1644; J2270; J7030; J7042

== ENCOUNTER 2022-05-11 09:20 | Emergency (ER) | payer SELFPAY ==
--- NOTE | 2022-05-11 16:38 | Emergency Department Report ---
ED General Adult HPI - General Chief complaint: Extremity Injury, Lower Stated complaint: PAIN IN FOOT Time Seen by Provider: 05/11/22 15:35 Source: patient Mode of arrival: Ambulatory Limitations: Physical Limitation - History of Present Illness Initial comments: 42-year-old male presents to the ED complaining of right leg swelling. Patient was recently discharged discharge from the ED and started taking amlodipine 10 mg daily. He states this morning noted swelling to the lower leg. Patient states that pain is a current 5 out of 10 at present time. Patient is able to ambulate without any difficulty. Patient is denies any chest pain shortness of breath or dysuria at present time. Patient is alert and oriented x3. No acute distress noted. No ill appearance noted. Severity scale (0 -10): 5 Quality: aching Consistency: intermittent Improves with: none Worsens with: none Associated Symptoms: denies other symptoms - Related Data Home Medications Medication Instructions Recorded Confirmed Last Taken Simvastatin 20 mg PO QHS 05/06/22 05/06/22 Unknown Previous Rx's Medication Instructions Recorded Last Taken Type Famotidine [Pepcid] 10 mg PO BID #30 tablet 05/06/22 Unknown Rx Vancomycin HCl 125 mg PO QID #40 cap 05/06/22 Unknown Rx hydrALAZINE [Apresoline TAB] 50 mg PO Q8HR #120 tablet 05/06/22 Unknown Rx atenoloL [Tenormin] 50 mg PO DAILY 10 Days #30 tab 05/11/22 Unknown Rx Allergies Allergy/AdvReac Type Severity Reaction Status Date / Time No Known Allergies Allergy Verified 05/11/22 09:58 ED Review of Systems ROS: Stated complaint: PAIN IN FOOT Other details as noted in HPI Constitutional: denies: chills, fever Eyes: denies: eye pain, eye discharge, vision change ENT: denies: ear pain, throat pain Respiratory: denies: cough, shortness of breath, wheezing Cardiovascular: denies: chest pain, palpitations Endocrine: no symptoms reported Gastrointestinal: denies: abdominal pain, nausea, diarrhea Genitourinary: denies: urgency, dysuria Musculoskeletal: joint swelling. denies: back pain, arthralgia Skin: denies: rash, lesions Neurological: denies: headache, weakness, paresthesias Psychiatric: denies: anxiety, depression Hematological/Lymphatic: denies: easy bleeding, easy bruising ED Past Medical Hx - Past Medical History Hx Hypertension: Yes Hx Diabetes: Yes - Social History Smoking Status: Unknown if ever smoked - Medications Home Medications: Home Medications Medication Instructions Recorded Confirmed Last Taken Type Famotidine [Pepcid] 10 mg PO BID #30 tablet 05/06/22 Unknown Rx Simvastatin 20 mg PO QHS 05/06/22 05/06/22 Unknown History Vancomycin HCl 125 mg PO QID #40 cap 05/06/22 Unknown Rx hydrALAZINE [Apresoline TAB] 50 mg PO Q8HR #120 tablet 05/06/22 Unknown Rx atenoloL [Tenormin] 50 mg PO DAILY 10 Days #30 tab 05/11/22 Unknown Rx ED Physical Exam - General Limitations: Physical Limitation General appearance: alert, in no apparent distress - Head Head exam: Present: atraumatic, normocephalic - Eye Eye exam: Present: normal appearance - ENT ENT exam: Present: mucous membranes moist - Neck Neck exam: Present: normal inspection - Respiratory Respiratory exam: Present: normal lung sounds bilaterally. Absent: respiratory distress - Cardiovascular Cardiovascular Exam: Present: regular rate, normal rhythm. Absent: systolic murmur, diastolic murmur, rubs, gallop - GI/Abdominal GI/Abdominal exam: Present: soft, normal bowel sounds - Rectal Rectal exam: Present: deferred - Extremities Exam Extremities exam: Present: normal inspection - Back Exam Back exam: Present: normal inspection - Neurological Exam Neurological exam: Present: alert, oriented X3 - Psychiatric Psychiatric exam: Present: normal affect, normal mood - Skin Skin exam: Present: warm, dry, intact, normal color. Absent: rash ED Course Vital Signs 05/11/22 05/11/22 09:51 17:00 Temperature 98.4 F 97.6 F Pulse Rate 83 88 Respiratory 16 16 Rate Blood Pressure 140/94 Blood Pressure 134/86 [Right] O2 Sat by Pulse 92 100 Oximetry ED Medical Decision Making - Medical Decision Making 42-year-old male presents to the ED complaining of right leg swelling. Patient was recently discharged discharge from the ED and started taking amlodipine 10 mg daily. he states this morning noted swelling to the lower leg. Patient states that pain is a current 5 out of 10 at present time. Patient is able to ambulate without any difficulty. Patient is denies any chest pain shortness of breath or dysuria at present time. Patient is alert and oriented x3. No acute distress noted. No ill appearance noted. Physical examination patient has nonpitting edema to the ankle area. Patient will stop amlodipine and and keep appointment with previous doctor. 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 I discussed the results of diagnostic study, my clinical impression and the plan for further treatment with the patient. Patient agrees with plan and discharge at this present time. All question addressed. I have given the patient instruction regarding a diagnosis ,expectation ,follow- up and return precaution. I explained to the patient that emergent condition may arise and to return to the ED for new worsen and any new persisting condition. I have explained the importance of following up with the primary care physician or referral physician listed below has instructed. The patient verbalized understanding of discharge instruction. Critical care attestation.: If time is entered above; I have spent that time in minutes in the direct care of this critically ill patient, excluding procedure time. ED Disposition Clinical Impression: Non-pitting edema Hypertension Qualifiers: Hypertension type: primary hypertension Qualified Code(s): I10 - Essential (primary) hypertension T2DM (type 2 diabetes mellitus) Qualifiers: Diabetes mellitus halfway insulin use: with halfway use Diabetes mellitus complication detail: with other oral complications Disposition: 01 HOME / SELF CARE / HOMELESS Is pt being admited?: No Does the pt Need Aspirin: No Condition: Stable Instructions: Type 2 Diabetes Mellitus, Diagnosis, Adult, Hypertension, Adult, Ancr-sh-Mehp, Diabetes Mellitus Type 2 in Adults (ED), Hypertension (ED) Additional Instructions: Stop taking amlodipine. Keep appointment with previous doctor has previous schedule at discharge on April Elevate right leg Turn to ED for any worsening symptom Prescriptions: atenoloL [Tenormin] 50 mg PO DAILY 10 Days #30 tab Referrals: SEBASTIAN REGAN MD [Primary Care Provider] - 3-5 Days Time of Disposition: 16:41 Print Language: MAORI
[2022-05-11 17:07] VITALS: BP 134/86
== END 2022-05-11 17:07 | disposition home or self-care (01) ==
LOC: ED 09:20
DX: R60.0 Localized edema (principal); I10 Essential (primary) hypertension; E11.9 Type 2 diabetes mellitus without complications; Z79.899 Other long term (current) drug therapy
CPT/HCPCS: 99282